=== PATIENT | female | born 1995 | race Two or more races ===

== ENCOUNTER → 2019-03-06 15:01 | Outpatient (CLI) | payer MEDICAID, SELFPAY ==
[2019-03-06 16:45] LABS: HCG,Quantitative 0 mIU/mL
== END ==
PROVIDERS: Visit Provider Nurse Practitioner Obstetrics & Gynecology
DX: Z32.00 Encounter for pregnancy test, result unknown (principal)
CPT/HCPCS: 36415; 84702

== ENCOUNTER 2020-06-17 14:32 | Emergency (ER) | payer OTHER, SELFPAY ==
[2020-06-17 14:45] VITALS: BP 149/85; PULSE 77; RESP 20; TEMP 36.7; O2SAT 98; BMI 28.0
--- NOTE | 2020-06-17 15:12 | HMH.EDUTC ---
[facility] [place] Disposition Clinical Impression: Otitis media Qualifiers: Otitis media type: unspecified Laterality: bilateral Qualified Code(s): H66.93 - Otitis media, unspecified, bilateral Sinusitis Qualifiers: Sinusitis location: unspecified location Chronicity: unspecified Qualified Code(s): J32.9 - Chronic sinusitis, unspecified Disposition: Home, Self-Care Condition on Discharge: Good Instructions: Middle Ear Infections (Alternative Therapy), Middle Ear Infection, Amoxicillin and Clavulanic Acid Additional Instructions: *Monitor Temp, Over the counter Motrin or Tylenol as directed/as needed Tylenol every 4 hours and Motrin every 6 hours (as long as your family doctor has told you that you can take it) for fever or pain. and straight to ER if unable to lower temp less than 101.0 after medication given *Warm salt water gargles may help to soothe the throat *Throat Lozenges *Warm fluids like tea with honey may help to soothe the throat *Sleep elevated *Humidifier/Vaporizer *Flonase 2 sprays in each nostril daily but be aware that it may take 2-3 days before you notice improvement Your throat swab was sent for culture. Those results are typically sent to your primary care. Be sure to follow up in 2-3 days with your family doctor/primary care physician if no improvement so they can review those result and treat if necessary. If you don?t have a primary care doctor, I recommend you get one but in the mean time, you will have to return to a walk in clinic Follow up IMMEDIATELY for new or worsening symptoms or no Noticeable improvement over the next 48-72 hours. 911 for difficulty breathing or swallowing Prescriptions: Amoxicillin/Potassium Clav [Augmentin 875-125 Tablet] 1 tab PO Q12H 10 Days #20 tab Transmission Status: Pending to [facility] # Fluticasone Propionate [Flonase 50mcg nasal spray 16gm] 1 - 2 spr NS DAILY #1 bottle Transmission Status: Pending to [facility] # Referrals: Oren Jones MD [Primary Care Provider] - As needed Time of Disposition: 15:17 Medical Decision Making - Rock Inquiry Pt receiving controlled substance: No Rock was queried for this patient: No Vital Signs: 06/17/20 14:45 Temperature 98.0 F Temperature Source Oral Pulse Rate [Right Brachial] 77 Respiratory Rate 20 Blood Pressure [Right Arm] 149/85 H Blood Pressure Mean [Right Arm] 106 Blood Pressure Source [Right Arm] Automatic Cuff Blood Pressure Position [Right Arm] Sitting 02 Sat by Pulse Oximetry 98 Oxygen Delivery Method Room Air [facility] [place] HPI - General Stated complaint: stuffy nose,headache Time Seen by Provider: 06/17/20 15:12 Mode of Arrival: Ambulatory Source of Information: Patient Limitations: No Limitations Description of Symptoms (Recalled from Triage Doc. by RN): PATIENT STATES SHE FEELS LIKE HER BILATERAL EARS ARE CLOGGED, ITCHING AND POSSIBLY DRAINING, DIZZINESS, AND SINUS PRESSURE X APPROX 1.5 WEEKS HEENT Symptoms (Recalled from RN notes): Yes Resp Symptoms (Recalled from RN notes): No Skin Symptoms (Recalled from RN notes): No MS Symptoms (Recalled from RN notes): No Functional Status (Recalled from RN notes): WNL - History of Present Illness Provider Complaint: Patient states that she has been having sinus pain and pressure along with bilateral ear pain and fullness for almost a week that has continued to get worse States that when it gets like this she has spells of feeling dizzy States that she has been treated several times in the past for this and last time she was given antibiotics and it didnt help but unsure what they was - Related Data Previous Rx's Medication Instructions Recorded Amoxicillin/Potassium Clav 1 tab PO Q12H 10 Days #20 tab 06/17/20 [Augmentin 875-125 Tablet] Fluticasone Propionate [Flonase 1 - 2 spr NS DAILY #1 bottle 06/17/20 50mcg nasal spray 16gm] Allergies Allergy/AdvReac Type Severity Reaction Status Date / Time No Known Allergies A
[2020-06-17 15:20] VITALS: BP 149/85; PULSE 77; RESP 20; TEMP 36.7; O2SAT 98
== END 2020-06-17 15:23 | disposition home or self-care (01) ==
PROVIDERS: Emergency Provider Nurse Practitioner; PCP Internal Medicine Adolescent Medicine
DX: H66.93 Otitis media, unspecified, bilateral (principal); J32.9 Chronic sinusitis, unspecified; F17.210 Nicotine dependence, cigarettes, uncomplicated
CPT/HCPCS: 99201

== ENCOUNTER 2020-07-07 15:15 | Emergency (ER) | payer OTHER, SELFPAY ==
[2020-07-07 16:16] VITALS: BP 115/66; PULSE 87; RESP 20; TEMP 36.7; O2SAT 99; BMI 23.8
--- NOTE | 2020-07-07 16:34 | XR_ITS ---
PROCEDURE: XR ANKLE RT MIN 3V CLINICAL INDICATION: twisted it Pain COMPARISON: No exams were available for comparison FINDINGS: No fracture or dislocation. No lytic or blastic change. There is normal mineralization. The joint spaces are well-preserved. No significant degenerative/arthritic changes. No erosive changes evident. Other findings:None. IMPRESSION: No acute findings. Dictated by: Francisco Meek MD 07/07/2020 17:05 Francisco Meek MD in [place] 07/07/2020 17:05
--- NOTE | 2020-07-07 16:49 | HMH.EDUTC ---
[facility] [place] Disposition Clinical Impression: UTI (urinary tract infection) Qualifiers: Urinary tract infection type: site unspecified Hematuria presence: with hematuria Qualified Code(s): N39.0 - Urinary tract infection, site not specified; R31.9 - Hematuria, unspecified Disposition: Home, Self-Care Condition on Discharge: Good Instructions: Urinary Tract Infection, DI for Urinary Tract Infection (UTI) Prescriptions: Ondansetron [Zofran 4mg ODT] 4 mg PO Q8HP PRN #9 tab.rapdis PRN Reason: Nausea Transmission Status: Pending to [facility] # Sulfamethoxazole/Trimethoprim [Bactrim DS tablet] 1 each PO BID 7 Days #14 tab Transmission Status: Pending to [facility] # Phenazopyridine HCl [Pyridium 200mg Tablet] 200 pow PO TID #6 tab Transmission Status: Pending to [facility] # Referrals: Oren Jones MD [Primary Care Provider] - Forms: Work/School Release Time of Disposition: 16:52 Medical Decision Making - Medical Records Medical records reviewed: No: I reviewed the patient's medical records. - Rock Inquiry Pt receiving controlled substance: No Vital Signs: 07/07/20 16:16 Temperature 98.1 F Temperature Source Oral Pulse Rate [Radial] 87 Respiratory Rate 20 Blood Pressure [Right Arm] 115/66 Blood Pressure Mean [Right Arm] 82 Blood Pressure Source [Right Arm] Automatic Cuff Blood Pressure Position [Right Arm] Sitting 02 Sat by Pulse Oximetry 99 Oxygen Delivery Method Room Air - Lab Data Lab results reviewed: Yes: I reviewed the patient's lab results. Orders (Tests/Meds): ORDERS Category Date Time Status Ankle XR -Right minimum 3 Views [XR ankle RT min 3V] Exams 07/07/20 16:34 Taken Stat [facility] [place] HPI - General Stated complaint: AO 1014@1130 injured R ankle Time Seen by Provider: 07/07/20 16:49 Mode of Arrival: Ambulatory Source of Information: Patient Limitations: No Limitations Description of Symptoms (Recalled from Triage Doc. by RN): twisted right ankle HEENT Symptoms (Recalled from RN notes): No Resp Symptoms (Recalled from RN notes): No Skin Symptoms (Recalled from RN notes): No MS Symptoms (Recalled from RN notes): Yes Functional Status (Recalled from RN notes): wnl - History of Present Illness Provider Complaint: She states that since this morning she has been having burning while she urinates and low back pain. She was at work when her symptoms began. She was sent to a [facility] in [place] and had a rapid covid test (it was negative), but at the time she did not realize that she was probably getting a uti. - Related Data Previous Rx's Medication Instructions Recorded Amoxicillin/Potassium Clav 1 tab PO Q12H 10 Days #20 tab 06/17/20 [Augmentin 875-125 Tablet] Fluticasone Propionate [Flonase 1 - 2 spr NS DAILY #1 bottle 06/17/20 50mcg nasal spray 16gm] Ondansetron [Zofran 4mg ODT] 4 mg PO Q8HP PRN #9 tab.rapdis 07/07/20 Phenazopyridine HCl [Pyridium 200 pow PO TID #6 tab 07/07/20 200mg Tablet] Sulfamethoxazole/Trimethoprim 1 each PO BID 7 Days #14 tab 07/07/20 [Bactrim DS tablet] Allergies Allergy/AdvReac Type Severity Reaction Status Date / Time No Known Allergies Allergy Verified 03/24/20 13:32 - Worker's Comp Is this a Worker's Comp case?: No [facility] History - Hepatitis A Screen Drug use history?: No High risk sexual behaviors?: No History of sexually transmitted infection?: No Currently employed?: No Childcare worker?: No Do you have indoor plumbing?: Yes Do you have electricity?: Yes Attestation statement:: This patient has been screened for Hepatitis A risk factors. I have reviewed the patient's past medical history: Yes Medical History: Denies:: Anxiety, Asthma, Depression, Diabetes Mellitus Type 1, Hyperlipidemia, Hypertension Laterality Cases: Bilateral: Tonsillectomy Amputation: No Fractures: Yes (TOE) Comment: cyst removed from right side of neck - Social History
--- NOTE | 2020-07-07 17:05 | HMH.EDUTC ---
[facility] [place] Disposition Clinical Impression: Right ankle sprain Qualifiers: Encounter type: initial encounter Involved ligament of ankle: unspecified ligament Qualified Code(s): S93.401A - Sprain of unspecified ligament of right ankle, initial encounter Disposition: Home, Self-Care Condition on Discharge: Good Instructions: Ankle Sprain, DI for Ankle Sprain Additional Instructions: Rest the extremity, apply ice for 15 minutes as tolerated three or four times per day, Elevate the extremity as tolerated while you are resting. Take ibuprofen for pain. I sent in a prescription to your pharmacy. Follow up with Dr. Low (orthopedics). I put in a referral but you need to call his office and schedule an appointment if your injury is not getting better. Follow up with your regular doctor. GO TO THE ER FOR ANY WORSENING SYMPTOMS Prescriptions: Ibuprofen [Ibuprofen 600mg Tablet] 600 mg PO Q6HP PRN #30 tab PRN Reason: Mild Pain Transmission Status: Received by [facility] #[id number] Referrals: Oren Jones MD [Primary Care Provider] - Forms: Work/School Release Time of Disposition: 17:46 Medical Decision Making - Medical Records Medical records reviewed: No: I reviewed the patient's medical records. - Rock Inquiry Pt receiving controlled substance: No Vital Signs: 07/07/20 16:16 07/07/20 18:34 Temperature 98.1 F 98.1 F Temperature Source Oral Oral Pulse Rate 87 Pulse Rate [Radial] 87 Respiratory Rate 20 20 Blood Pressure 115/66 Blood Pressure [Right Arm] 115/66 Blood Pressure Mean [Right Arm] 82 Blood Pressure Source Automatic Cuff Blood Pressure Source [Right Arm] Automatic Cuff Blood Pressure Position Sitting Blood Pressure Position [Right Arm] Sitting 02 Sat by Pulse Oximetry 99 Oxygen Delivery Method Room Air Room Air - Radiology Data #1 Image(s): Ankle Image Reviewed: Yes I reviewed the patient's radiology image, Yes I have reviewed radiologist's interpretation Preliminary Findings: No Fracture Seen PROCEDURE: XR ANKLE RT MIN 3V CLINICAL INDICATION: twisted it Pain COMPARISON: No exams were available for comparison FINDINGS: No fracture or dislocation. No lytic or blastic change. There is normal mineralization. The joint spaces are well-preserved. No significant degenerative/arthritic changes. No erosive changes evident. Other findings:None. IMPRESSION: No acute findings. Dictated by: Francisco Meek MD 07/07/2020 17:05 in [place] [facility] [place] HPI - General Stated complaint: AO 1014@1130 injured R ankle Time Seen by Provider: 07/07/20 16:49 Mode of Arrival: Ambulatory Source of Information: Patient Limitations: No Limitations Description of Symptoms (Recalled from Triage Doc. by RN): twisted right ankle HEENT Symptoms (Recalled from RN notes): No Resp Symptoms (Recalled from RN notes): No Skin Symptoms (Recalled from RN notes): No MS Symptoms (Recalled from RN notes): Yes Functional Status (Recalled from RN notes): wnl - History of Present Illness Provider Complaint: She states that she stepped on the leg of a chair or table and it caused her to twist her right ankle. This happened earlier today. Since then she has had right ankle pain and right foot pain. The pain is worse when she walks or bears weight on that extremity. - Related Data Previous Rx's Medication Instructions Recorded Amoxicillin/Potassium Clav 1 tab PO Q12H 10 Days #20 tab 06/17/20 [Augmentin 875-125 Tablet] Fluticasone Propionate [Flonase 1 - 2 spr NS DAILY #1 bottle 06/17/20 50mcg nasal spray 16gm] Ibuprofen [Ibuprofen 600mg 600 mg PO Q6HP PRN #30 tab 07/07/20 Tablet] Allergies Allergy/AdvReac Type Severity Reaction Status Date / Time No Known Allergies Allergy Verified 03/24/20 13:32 - Worker's Comp Is this a Worker's Comp case?: No [facility] History - Hepatitis A Screen Drug use history?: No High risk sexual behaviors?: No History o
[2020-07-07 18:34] VITALS: BP 115/66; PULSE 87; RESP 20; TEMP 36.7; O2SAT 99
== END 2020-07-07 18:35 | disposition home or self-care (01) ==
PROVIDERS: Emergency Provider Nurse Practitioner Family; PCP Internal Medicine Adolescent Medicine
DX: S93.401A Sprain of unspecified ligament of right ankle, initial encounter (principal); X50.1XXA Overexertion from prolonged static or awkward postures, initial encounter; Y92.019 Unspecified place in single-family (private) house as the place of occurrence of the external cause; N30.01 Acute cystitis with hematuria
CPT/HCPCS: 73610; 99201

== ENCOUNTER → 2020-07-21 16:31 | Outpatient (CLI) | payer OTHER, SELFPAY | PROVIDERS: PCP Internal Medicine Adolescent Medicine; Visit Provider Nurse Practitioner Family | DX: Z02.1 Encounter for pre-employment examination (principal); Z11.1 Encounter for screening for respiratory tuberculosis ==

== ENCOUNTER → 2020-10-29 15:41 | Outpatient (CLI) | payer OTHER, SELFPAY ==
[2020-10-29 17:41] LABS: HCG,Quantitative 27 mIU/ml (0-5.42)
== END ==
PROVIDERS: Visit Provider Nurse Practitioner Obstetrics & Gynecology
DX: Z34.90 Encounter for supervision of normal pregnancy, unspecified, unspecified trimester (principal)
CPT/HCPCS: 36415; 84702

== ENCOUNTER → 2020-11-26 07:59 | Outpatient (CLI) | payer OTHER, SELFPAY ==
[2020-11-26 09:53] LABS: HCG,Quantitative 90903 mIU/ml (0-5.42)
== END ==
PROVIDERS: Visit Provider Nurse Practitioner Obstetrics & Gynecology
DX: Z32.00 Encounter for pregnancy test, result unknown (principal)
CPT/HCPCS: 36415; 84702

== ENCOUNTER → 2020-12-03 10:48 | Outpatient (CLI) | payer OTHER, SELFPAY ==
--- NOTE | 2020-12-03 10:48 | US_ITS ---
PROCEDURE: US OB <= 14 WEEKS FETUS CLINICAL INDICATION: US OB before 14 weeks for DATES COMPARISON: No exams were available for comparison FINDINGS: An intrauterine gestational sac is present with a pole with a crown-rump length of 1.88cm correlating to gestational age of 8weeks 3days. heart tones are present with an FHR of 174bpm. Yolk sac is noted. 2 cm right corpus luteum cyst noted IMPRESSION: Live IUP at 8 weeks 3 days. Estimated due date by Ultrasound is 07/12/2021 Dictated by: Francisco Meek MD 12/03/2020 16:55 Francisco Meek MD in [place] 12/03/2020 16:55
== END ==
PROVIDERS: PCP Internal Medicine Adolescent Medicine; Visit Provider Nurse Practitioner Obstetrics & Gynecology
DX: O26.841 Uterine size-date discrepancy, first trimester (principal); Z3A.09 9 weeks gestation of pregnancy
CPT/HCPCS: 76801

== ENCOUNTER 2020-12-31 15:27 | Emergency (ER) | payer OTHER, SELFPAY ==
[2020-12-31 15:28] VITALS: BP 129/74; PULSE 104; RESP 18; TEMP 36.4; O2SAT 97; BMI 28.5
--- NOTE | 2020-12-31 15:46 | ECG_ITS ---
APPROVED REPORT Exam: Resting ECG HR:91 bpm ECG Measurements Heart Rate 91 AXES IL 116 P 27 QRSd 84 QRS 68 QT 374 T 6 QTc 460 Conclusion Sinus rhythm with fusion complexes ST abnormality - non specific Abnormal ECG Electronically signed by : Oren Jones, 01/01/2021 08:40:47
--- NOTE | 2020-12-31 15:58 | HMH.EDDIZZ ---
ED Disposition Clinical Impression: PVC (premature ventricular contraction), Palpitations, Dehydration during Disposition: Home, Self-Care Condition on Discharge: Good Instructions: Dizziness, Nonvertigo, DI for Palpitations Additional Instructions: Return to the ED with any new or worsening symptoms including persistent palpitations that do not resolve spontaneously, chest pain, shortness of breath, fever. Referrals: Oren Jones MD [Primary Care Provider] - Time of Disposition: 19:14 - Critical Care Critical Care Time: No Attestation: On 12/31/20, the high probability of a clinically significant, sudden or life threatening deterioration of the following system(s) required my full and direct attention, intervention and personal management. The time I documented below is in addition to time spent performing reported procedures but includes the following listed in this critical care notation. Medical Decision Making - Medical Records Medical records reviewed: Yes: I reviewed the patient's medical records. - Rock Inquiry Pt receiving controlled substance: No Vital Signs: 12/31/20 15:28 Temperature 97.6 F Temperature Source Oral Pulse Rate [Left Radial] 104 H Respiratory Rate 18 Blood Pressure [Right Arm] 129/74 Blood Pressure Mean [Right Arm] 92 Blood Pressure Source [Right Arm] Automatic Cuff Blood Pressure Position [Right Arm] Sitting 02 Sat by Pulse Oximetry 97 Oxygen Delivery Method Room Air - Lab Data Lab Results 12/31/20 17:24: Urine Color Yellow, Urine Appearance Cloudy, Urine pH 6.0, Ur Specific [place] >= 1.030, Urine Protein Negative, Urine Glucose (UA) Negative, Urine Ketones Negative, Urine Blood Negative, Urine Nitrate Negative, Urine Bilirubin Negative, Urine Urobilinogen 0.2, Ur Leukocyte Esterase 1+ A, Urine RBC None, Urine WBC 5-10, Ur Squamous Epith Cells 10-20, Amorphous Sediment 2+, Urine Bacteria None 12/31/20 17:24: WBC 11.6 H, RBC 4.27, Hgb 13.0, Hct 38.0, MCV 88.9, MCH 30.4, MCHC 34.2, RDW 13.1, Plt Count 279, MPV 8.0, Neut % (Auto) 74.3, Lymph % (Auto) 17.6, Coffee % (Auto) 6.7, Eos % (Auto) 1.1, Baso % (Auto) 0.3, Neut # (Auto) 8.6 H, Lymph # (Auto) 2.1, Coffee # (Auto) 0.8, Eos # (Auto) 0.1, Baso # (Auto) 0.0 12/31/20 17:24: Sodium 137, Potassium 3.8, Chloride 107, Carbon Dioxide 23, Anion Gap 10.8, BUN 8, Creatinine 0.50 L, Estimated Creat Clear 236, Estimated GFR 149, Est GFR ( Amer) 180, Glucose 78, Calcium 9.4, Magnesium 1.9, Total Bilirubin 0.5, AST 31, ALT 30, Alkaline Phosphatase 61, Total Protein 7.1, Albumin 4.1, Globulin 3.0, Albumin/Globulin Ratio 1.4 Result diagrams: 12/31/20 17:24 12/31/20 17:24 Orders (Tests/Meds): ED MEDICATIONS Discontinued Medications Generic Name Dose Route Start Last Admin Trade Name Freq PRN Reason Stop Dose Admin Lactated Ringer's 1,000 mls @ 999 mls/hr 12/31/20 16:30 12/31/20 17:31 Lactated Ringer's 1000 Ml Bag IV 12/31/20 17:30 999 mls/hr .Q1H1M KENDRICK Administration ORDERS Category Date Time Status Urine Culture Stat Micro 12/31/20 17:24 Received EKG Request [ECG Request by /Abdi] Stat Y 12/31/20 16:53 Stop Req - ECG Data Tracing #2 I reviewed this ECG and interpreted as documented below: Normal sinus rhythm with evidence of ectopy in the form of PVCs. No evidence of ST segment changes or acute T wave inversions concerning for ischemia. Medical Decision Narrative: 25-year-old female who is 3 months who presents with palpitations and dizziness upon standing. Patient is overall well-appearing and nontoxic on initial examination is hemodynamically stable vital signs but evidence of ectopy on exam and EKG. Suspect this is related physiologic changes and complicated by dehydration. CMP, CBC and UA are ordered and she is given a 1 L IV fluid bolus. Electrolytes are all within normal limits and demonstrate no acute actionable results. No evidence of urinalysis. Fo
[2020-12-31 17:31] VITALS: BP 133/85; PULSE 87; O2SAT 97
[2020-12-31 17:31] LABS: Microscopic, Urine URINE MICROSCOPIC (MICROSCOPIC)
[2020-12-31 17:32] LABS: Appearance,Urine CLOUDY (Clear); Basophils % 0.3 % (0.1-2.0); Bilirubin,Urine Negative (Negative); Blood, Urine Negative (Negative); Color,Urine YELLOW (Yellow); Eosinophils # 0.1 K/mm3 (0.0-0.4); Eosinophils % 1.1 % (0.1-12.0); Glucose,Urine (UA) Negative (Negative); Ketones,Urine Negative (Negative); Leukocyte Esterase,Urine 1+ (Negative); Lymphocytes # 2.1 K/mm3 (0.7-4.5); Lymphocytes % 17.6 % (10-50); Mean Corpuscular HGB Conc 34.2 g/dL (31.8-35.4); Mean Corpuscular Hemoglobin 30.4 pg (27.0-31.2); Mean Corpuscular Volume 88.9 fl (81-99); Monocytes # 0.8 K/mm3 (0.1-1.0); Monocytes % 6.7 % (1.7-9.3); Neutrophils # 8.6 K/mm3 (1.8-7.8); Neutrophils % 74.3 % (37.0-80.0); Nitrate,Urine Negative (Negative); Platelet Count 279 K/mm3 (142-424); Protein,Urine Negative (Negative); Red Blood Count 4.27 M/mm3 (4.20-5.40); Red Cell Distribution Width 13.1 % (11.5-17.5); Specific Gravity, Urine >= 1.030 (1.005-1.030); Urobilinogen,Urine 0.2 EU/dl (0.2); White Blood Count 11.6 K/mm3 (4.8-10.8)
[2020-12-31 17:39] LABS: Amorphous Sediment,Urine 2+ /lpf
[2020-12-31 17:40] LABS: Chloride 107 mmol/L (98-107); Potassium 3.8 mmoL/L (3.5-5.1); Sodium 137 mmol/L (136-145)
[2020-12-31 17:42] LABS: Alanine Aminotransferase 30 U/L (12-78); Aspartate Amino Transferase 31 U/L (14-36); Blood Urea Nitrogen 8 mg/dl (7-17); Creatinine Clearance Estimated 236 mL/min (50-200); Estimated Glomerular Filt Rate 149 ml/min (>60); GFR (African American) 180 ML/MIN (>60)
[2020-12-31 17:43] LABS: Albumin Level 4.1 g/dl (3.5-5.0); Albumin/Globulin Ratio 1.4 (1.1-1.8); Alkaline Phosphatase 61 U/L (38-126); Anion Gap 10.8 mEq/L (5-15); Bilirubin,Total 0.5 mg/dl (0.2-1.3); Calcium 9.4 mg/dl (8.4-10.2); Carbon Dioxide 23 mmol/L (22.0-30.0); Glucose 78 mg/dl (74-100); Magnesium 1.9 mg/dl (1.6-2.3); Total Protein,Serum 7.1 g/dl (6.3-8.2)
[2020-12-31 18:00] VITALS: BP 144/94; PULSE 82; O2SAT 98
[2020-12-31 18:30] VITALS: BP 130/74; PULSE 76; O2SAT 99
[2020-12-31 19:00] VITALS: BP 154/92; PULSE 69; O2SAT 97
[2020-12-31 19:25] VITALS: BP 154/92; PULSE 69; RESP 18; TEMP 36.4; O2SAT 97
== END 2020-12-31 19:25 | disposition home or self-care (01) ==
PROVIDERS: Emergency Provider Student in an Organized Health Care Education/Training Program; PCP Internal Medicine Adolescent Medicine
DX: O26.899 Other specified pregnancy related conditions, unspecified trimester (principal); E86.0 Dehydration; I49.3 Ventricular premature depolarization; Z3A.12 12 weeks gestation of pregnancy; F17.290 Nicotine dependence, other tobacco product, uncomplicated
CPT/HCPCS: 80053; 81001; 83735; 85025; 87086; 93005; 96365; 99282

== ENCOUNTER → 2021-01-03 13:23 | Outpatient (CLI) | payer OTHER, SELFPAY ==
[2021-01-03 13:47] LABS: Basophils % 0.3 % (0.1-2.0); Eosinophils # 0.2 K/mm3 (0.0-0.4); Eosinophils % 1.4 % (0.1-12.0); Hemoglobin 12.7 g/dL (12.2-16.2); Lymphocytes % 17.6 % (10-50); Mean Corpuscular HGB Conc 33.5 g/dL (31.8-35.4); Mean Corpuscular Hemoglobin 30.4 pg (27.0-31.2); Mean Corpuscular Volume 90.8 fl (81-99); Mean Platelet Volume 8.2 fl (7.4-10.4); Monocytes # 0.7 K/mm3 (0.1-1.0); Monocytes % 6.3 % (1.7-9.3); Neutrophils # 8.3 K/mm3 (1.8-7.8); Neutrophils % 74.4 % (37.0-80.0); Platelet Count 297 K/mm3 (142-424); Red Blood Count 4.19 M/mm3 (4.20-5.40); White Blood Count 11.2 K/mm3 (4.8-10.8)
[2021-01-03 14:49] LABS: Alanine Aminotransferase 27 U/L (12-78); Albumin Level 4.2 g/dl (3.5-5.0); Albumin/Globulin Ratio 1.6 (1.1-1.8); Alkaline Phosphatase 70 U/L (38-126); Anion Gap 13.3 mEq/L (5-15); Aspartate Amino Transferase 31 U/L (14-36); Bilirubin,Total 0.4 mg/dl (0.2-1.3); Blood Urea Nitrogen 8 mg/dl (7-17); Calcium 9.9 mg/dl (8.4-10.2); Carbon Dioxide 22 mmol/L (22.0-30.0); Chloride 107 mmol/L (98-107); Estimated Glomerular Filt Rate 121 ml/min (>60); GFR (African American) 146 ML/MIN (>60); Globulin 2.7 g/dL (1.3-3.2); Glucose 77 mg/dl (74-100); Potassium 4.3 mmoL/L (3.5-5.1); Sodium 138 mmol/L (136-145); Total Protein,Serum 6.9 g/dl (6.3-8.2)
[2021-01-03 15:22] LABS: Thyroid Stimulating Hormone 0.77 uIU/mL (0.465-4.68)
[2021-01-03 15:39] LABS: Vitamin B12 481 pg/mL (239-931)
[2021-01-05 22:25] LABS: Hepatitis B Surface Antigen Negative (Negative); Hepatitis C Antibody <0.1 s/co ratio (0.0-0.9); Rapid Plasma Reagin Ab Titer Non Reactive (NonRea<1:1)
[2021-01-05 22:26] LABS: HIV Screen 4th Generation wRfx Non Reactive (Non Reactive); Rubella Antibodies, IgG <0.90 index (Immune >0.99)
== END ==
PROVIDERS: Nurse Practitioner Obstetrics & Gynecology; Visit Provider Internal Medicine Adolescent Medicine
DX: Z34.90 Encounter for supervision of normal pregnancy, unspecified, unspecified trimester (principal); Z3A.01 Less than 8 weeks gestation of pregnancy
CPT/HCPCS: 36415; 80053; 82607; 84443; 85025; 86592; 86703; 86762; 86850; 87340; 87380; G0432

== ENCOUNTER → 2021-01-27 12:42 | Outpatient (CLI) | payer OTHER, SELFPAY ==
--- NOTE | 2021-01-27 12:49 | CA_ITS ---
APPROVED REPORT EXAM: Comprehensive 2D, Doppler, and color-flow Echocardiogram Photograph Finisher: Bea Small, RCS, RVS Ht: 5 ft 8 in Wt: 188lbs BSA: 1.99 HR: 68 bpm BP: 118/68 mmHg Rhythm: irregulr Indications: Palpitatioins, -16wk, congenital hx-AI, murmur 2D Dimensions IVSd 0.67 cm LVEF (Visual) 59.10 % PWd 0.72 cm LA Volume 34.10 mL LVDd 4.16 cm LA Volume Index 17.10 mL/m2 (M/F) 16-34 LVDs 2.87 cm LVOT 1.93 cm (M/F) 1.5-2.5 M-Mode Dimensions RVDd 2.79 cm (0.9-2.6) LA Diam 2.23 cm (1.9-4.0) LVDd 3.89 cm (3.5-5.7) Ao Diam 3.00 cm (2.0-3.7) LVDs 2.74 cm (3.5-5.7) IVSd 0.67 cm (0.6-1.1) PWd 1.02 cm (0.6-1.1) EF (Teich) 58.80% EPSs 0.40 cm FS 30.60% EDV (Teich) 67.90 mL TAPSE 1.30 (<1.7) ESV (Teich) 28.00 mL LV Diastology E Decel Time 253.00 (160-240 msec) E/A Ratio 3.40 MED E' 13.10 (< 7 cm/sec) MED A' 4.40 cm/s E'/MED E' Ratio 5.66 (>14) LAT E' 16.10 (<10 cm/sec) LAT A' 4.20 cm/s E/LAT E' Ratio 4.61 (>14) Aortic Valve LVOT Max 76.00 (70-110 cm/s) LVOT VTI 12.37 cm AoV Peak Wilder. 113.00 (50-130 cm/s) AI PHT 511.00 ms AO Peak GR. 5.10 mmHg AO Mean GR. 3.00 (<5 mmHg) AO VTI 21.03 (18-25 cm) ABEL (VTI) 1.72 (2.5-4.5 cm2) Mitral Valve MV E Max Wilder. 74.00 (40-130 cm/s) MV A Velocity 22.00 (40-130 cm/s) E/A Ratio 3.40 MV Decel. Time 253.00 (160-240 ms) MV PHT 74.00 ms Pulmonary Valve PV Peak Velocity 81.00 (50-150 cm/s) UT End VMAX 132.00 cm/s Tricuspid Valve TR P. Velocity 186.00 cm/s RAP Estimate 10.00 mmHg RVSP 23.90 mmHg Left Ventricle Left atrium is normal size, left ventricle is normal size, there is no concentric left ventricular hypertrophy, visually estimated ejection fraction 55% with no regional wall motion abnormality. Diastolic parameters are within normal range Right Ventricle Right atrium and right ventricle are normal size and contractility. Aortic Valve Aortic valve morphology is not well-visualized, leaflets are minimally thickened and calcified, is likely a bicuspid aortic valve, there is no aortic stenosis, there is mild aortic insufficiency. Mitral Valve Mitral valve grossly normal, there is trace mitral regurgitation. Tricuspid Valve Tricuspid grossly normal, there is no significant tricuspid regurgitation. Pulmonic Valve Pulmonic valve is poorly visualized. Great Vessels Aortic root is normal size. Pericardium No significant pericardial effusion noted. Conclusion 1. Normal left ventricular size, preserved left ventricular systolic function, visually estimated ejection fraction 55% with no regional wall motion abnormality, diastolic parameters are within normal range 2. Likely bicuspid aortic valve with mild aortic insufficiency, aortic root is normal size. 3. No significant pericardial effusion noted. Electronically signed by : Vinay Bryant, 01/27/2021 17:10:08
== END ==
PROVIDERS: PCP Internal Medicine Adolescent Medicine; Visit Provider Internal Medicine Adolescent Medicine
DX: Q23.1 Congenital insufficiency of aortic valve (principal)
CPT/HCPCS: 93306

== ENCOUNTER → 2021-02-23 13:00 | Outpatient (CLI) | payer OTHER, SELFPAY ==
--- NOTE | 2021-02-23 13:04 | US_ITS ---
PROCEDURE: US OB >= 14 WEEKS FETUS CLINICAL INDICATION: 20 week gestation of COMPARISON: No exams were available for comparison FINDINGS: There is a single live fetus which is in breech presentation. heart and body motion is noted. Cervix is closed and measures 3 cm. The placenta is anterior and grade 1. No previa or abruption. Complete survey performed and was unremarkable on the submitted images as in PACS. No discrete anomalies identified on survey imaging by technologist. Active fetus. Three-vessel cord with satisfactory umbilical cord insertion. 4- chamber heart noted. Survey of brain & ventricles Unremarkable. Face and neck survey unremarkable. Diaphragm and chest views unremarkable. Abdomen: Both kidneys noted and unremarkable. Stomach noted and satisfactory. Spine: Survey of the spine satisfactory with no anomalies identified nor imaged. Both arms and legs noted. Amniotic Fluid: Adequate. Maternal adnexa: No significant findings. Measurements: Average ultrasound age 20weeks. Gestational Age 20weeks Estimated due date by ultrasound age 1007/13/2021. Estimated weight 324g BPD = 20weeks 1day OFD = 20weeks 1day HC = 19weeks 2days AC = 20weeks FL = 20weeks 1day Growth Percentile= 35% Heart Rate = 150bpm Cerebellum = 20weeks 1day Humerus = 20weeks 2days HC/AC is 1.13 CI is 0.79 FL/BPD is 0.7 FL/AC is 0.22 IMPRESSION: Live IUP at 20 weeks in breech presentation. No obvious anomalies. Please see above for detail. Dictated by: Francisco Meek MD 02/23/2021 17:27 Francisco Meek MD in [place] 02/23/2021 17:27
== END ==
PROVIDERS: PCP Internal Medicine Adolescent Medicine; Visit Provider Nurse Practitioner Obstetrics & Gynecology
DX: Z34.90 Encounter for supervision of normal pregnancy, unspecified, unspecified trimester (principal); Z3A.20 20 weeks gestation of pregnancy
CPT/HCPCS: 76805

== ENCOUNTER → 2021-03-07 14:19 | Outpatient (CLI) | payer OTHER, SELFPAY ==
--- NOTE | 2021-03-07 14:19 | CA_ITS ---
APPROVED REPORT EXAM: Comprehensive 2D, Doppler, and color-flow Echocardiogram Clinical Instructor: Farnaz Lema RT(R) Ht: 5 ft 9 in Wt: 189lbs BSA: 2.02 BP: 118/68 mmHg Indications: murmur, palpitations, 20 weeks , r/o bicuspid AV, echo 01/27/21 suggest additional AV pictures and measurements 2D Dimensions LVOT 2.11 cm (M/F) 1.5-2.5 Aortic Valve LVOT Max 101.00 (70-110 cm/s) LVOT VTI 18.23 cm AoV Peak Wilder. 122.00 (50-130 cm/s) AO Peak GR. 5.90 mmHg AO Mean GR. 2.90 (<5 mmHg) AO VTI 20.43 (18-25 cm) ABEL (VTI) 3.12 (2.5-4.5 cm2) Left Ventricle Left atrium is normal size, left ventricle is normal size, there is no concentric left ventricular hypertrophy, visually estimated ejection fraction 55% with no regional wall motion abnormality. Diastolic parameters are within normal range. Right Ventricle Right atrium and right ventricle are normal size and contractility. Aortic Valve Aortic valve appears to be bicuspid without aortic stenosis, there is trace aortic insufficiency. Mitral Valve Mitral valve grossly normal, there is trace mitral regurgitation. Tricuspid Valve Tricuspid grossly normal, there is trace tricuspid regurgitation, tricuspid regurgitation jet velocity is inadequate for calculation of the right ventricular systolic pressure. Pulmonic Valve Pulmonic valve is poorly visualized. Great Vessels Aortic root is normal size. Pericardium No significant pericardial effusion noted. Conclusion 1. Normal left ventricular size, preserved left ventricular systolic function, visually estimated ejection fraction 55% with no regional wall motion abnormality, diastolic parameters are within normal range. 2. Bicuspid aortic valve with normal aortic root size, there is no aortic i stenosis,, there is trace aortic insufficiency. 3. Trace mitral and tricuspid regurgitation. 4. No significant pericardial effusion noted. Electronically signed by : Vinay Bryant, 03/07/2021 20:13:33
== END ==
PROVIDERS: PCP Internal Medicine Adolescent Medicine; Visit Provider Internal Medicine Cardiovascular Disease
DX: I49.3 Ventricular premature depolarization (principal); R00.2 Palpitations; R01.1 Cardiac murmur, unspecified; Z3A.16 16 weeks gestation of pregnancy
CPT/HCPCS: 93308

== ENCOUNTER → 2021-04-26 07:01 | Outpatient (CLI) | payer OTHER, SELFPAY ==
[2021-04-26 07:37] LABS: Glucose,Fasting 79 mg/dl (74-100)
[2021-04-26 09:06] LABS: Glucose 1 Hour 124 mg/dL (74-100)
== END ==
PROVIDERS: Visit Provider Nurse Practitioner Obstetrics & Gynecology
DX: Z34.90 Encounter for supervision of normal pregnancy, unspecified, unspecified trimester (principal)
CPT/HCPCS: 36415; 82951

== ENCOUNTER 2021-05-17 11:10 | Emergency (ER) | payer OTHER, SELFPAY ==
[2021-05-17 12:08] VITALS: BP 113/68; PULSE 122; RESP 20; TEMP 36.9; O2SAT 100; BMI 29.7
--- NOTE | 2021-05-17 12:21 | HMH.EDUTC ---
[facility] [place] Clinical Impression: Viral syndrome Acute bronchitis Qualifiers: Bronchitis organism: unspecified organism Qualified Code(s): J20.9 - Acute bronchitis, unspecified Pharyngitis Qualifiers: Pharyngitis/tonsillitis etiology: unspecified etiology Qualified Code(s): J02.9 - Acute pharyngitis, unspecified Disposition: Home, Self-Care Condition on Discharge: Good Instructions: DI for Acute Bronchitis, DI for Viral Syndrome Additional Instructions: Drink plenty of fluids. Take tylenol or ibuprofen for pain or fever. Take the medications as directed. Follow up with your regular doctor. GO TO THE ER FOR ANY WORSENING SYMPTOMS Quarantine until you know the results of your covid-19 test. If it is positive, the health department should call you and give you further instructions about your length of Quarantine and other things. Notify your school or workplace of your results and follow their instructions regarding return to work/school. Prescriptions: Azithromycin [Z-Karan 250mg Tab*] 250 mg PO UD DOSE PK #6 tab Transmission Status: Received by [facility] #[id number] Referrals: rOen Jones MD [Primary Care Provider] - Forms: Work/School Release Time of Disposition: 12:34 Medical Decision Making - Medical Records Medical records reviewed: No: I reviewed the patient's medical records. - Rock Inquiry Pt receiving controlled substance: No Vital Signs: 05/17/21 12:08 05/17/21 12:52 Temperature 98.4 F 98.2 F Temperature Source Oral Pulse Rate 112 H Pulse Rate [Left] 122 H Respiratory Rate 20 18 Blood Pressure 0/0 L Blood Pressure [Right Arm] 113/68 Blood Pressure Mean [Right Arm] 83 02 Sat by Pulse Oximetry 100 - Lab Data Lab results reviewed: Yes: I reviewed the patient's lab results. Lab Results 05/17/21 12:25: Strep Scn Rapid Clinic Negative Orders (Tests/Meds): ORDERS Category Date Time Status Full Resp Panel w/COVID ([facility]) Routine Lab 05/17/21 12:03 Received Strep Screen Confirmation Stat Micro 05/17/21 12:25 [facility] HPI - General Stated complaint: covid exposure, cough Time Seen by Provider: 05/17/21 12:22 Mode of Arrival: Ambulatory Source of Information: Patient Limitations: No Limitations Description of Symptoms (Recalled from Triage Doc. by RN): pt was exposed to covid about a week ago. pt presents with cough, congestion, bilateral anterior and posterior rib pain. HEENT Symptoms (Recalled from RN notes): Yes (congestion, nasal drainage and LIU) Resp Symptoms (Recalled from RN notes): Yes (cough and lung pain) Skin Symptoms (Recalled from RN notes): No MS Symptoms (Recalled from RN notes): No Functional Status (Recalled from RN notes): na - History of Present Illness Provider Complaint: She reports that she has had a cough, chest congestion, pleuritic type chest pain, and feeling bad for the past 2 days. She is around 30 weeks . - Related Data Home Medications Medication Instructions Recorded Confirmed PNV 153-FA 400 mcg-om3 35 mg-dha tab PO 11/29/20 05/10/21 25 mg-epa 5 mg-fish oil chew tablet labetalol 100 mg tablet 50 mg PO BID tab 03/10/21 05/10/21 Previous Rx's Medication Instructions Recorded famotidine 20 mg tablet 20 mg PO DAILY #30 tab 11/29/20 ferrous sulfate 325 mg (65 mg 325 mg PO DAILY #30 tab 04/04/21 iron) tablet Azithromycin [Z-Karan 250mg Tab*] 250 mg PO UD DOSE PK #6 tab 05/17/21 Allergies Allergy/AdvReac Type Severity Reaction Status Date / Time No Known Allergies Allergy Verified 05/10/21 08:35 - Worker's Comp Is this a Worker's Comp case?: No [facility] History - Hepatitis A Screen Drug use history?: No High risk sexual behaviors?: No History of sexually transmitted infection?: No Currently employed?: No Childcare worker?: No Do you have indoor plumbing?: Yes Do you have electricity?: Yes Attestation statement:: This patient has been screened for Hepatitis
[2021-05-17 12:49] LABS: UTC Strep Screen (Rapid) Negative (Negative)
[2021-05-17 12:52] VITALS: BP 0/0; PULSE 112; RESP 18; TEMP 36.8
[2021-05-17 14:18] LABS: Adenovirus,PCR Not Detected (NotDetected); Bordetella Pertussis Not Detected (NotDetected); Chlamydophila Pneumoniae, PCR Not Detected (NotDetected); Coronavirus 229E Not Detected (NotDetected); Coronavirus NL63 Not Detected (NotDetected); Coronavirus OC43 Not Detected (NotDetected); Coronovirus HKU1,PCR Not Detected (NotDetected); Human Metapneumovirus Not Detected (NotDetected); Influenza A, PCR Not Detected (NotDetected); Influenza AH1, 2009 Not Detected (NotDetected); Influenza AH1, PCR Not Detected (NotDetected); Influenza AH3,PCR Not Detected (NotDetected); Influenza B, PCR Not Detected (NotDetected); Mycoplasma Pneumoniae, PCR Not Detected (NotDetected); Parainfluenza 1, PCR Not Detected (NotDetected); Parainfluenza 2, PCR Not Detected (NotDetected); Parainfluenza 3, PCR Not Detected (NotDetected); Parainfluenza 4, PCR Not Detected (NotDetected); Respiratory Syncytial Virus Not Detected (NotDetected); Rhinovirus/Enterovirus Not Detected (NotDetected)
[2021-05-19 06:52] LABS: Coronavirus 19, PCR Detected (NotDetected)
--- NOTE | 2021-05-19 09:25 | PC.NURSE ---
INFORMED PATIENT SHE WAS COVID POSITIVE
== END 2021-05-17 12:58 | disposition home or self-care (01) ==
PROVIDERS: Emergency Provider Nurse Practitioner Family; PCP Internal Medicine Adolescent Medicine
DX: O99.512 Diseases of the respiratory system complicating pregnancy, second trimester (principal); U07.1 COVID-19; J20.8 Acute bronchitis due to other specified organisms; Z3A.30 30 weeks gestation of pregnancy
CPT/HCPCS: 87581; 87633; 87798; 87880; 99202; G0463

== ENCOUNTER → 2021-06-08 13:22 | Outpatient (CLI) | payer OTHER, SELFPAY ==
--- NOTE | 2021-06-08 13:25 | US_ITS ---
PROCEDURE: US OB BIOPHYSICAL PROFILE CLINICAL INDICATION: Measuring smaller than dates TECHNIQUE: FINDINGS: The following parameters are obtained: Average ultrasound age is Average 33weeks 5days Estimated due date by ultrasound is 07/22/2021. Estimated weight is 2,110g. This is 6 percentile indicating intrauterine growth restriction. BPD: 33weeks 3days OFD: 33weeks 3days HC: 33 weeks 4 days AC: 32 weeks 1 day FL: 34 weeks 2 days heart rate: 149bpm bpm. HC/AC: 1.08 Cephalic index: 0.81 FL/BPD: 0.78 FL/AC: 0.24 Amniotic fluid index: 14.36cm Qualitative AFV: 2 breathing movements: 2 Gross body movements: 2 Tone: 2 Biophysical profile score: 8 The cervix is closed at 2 cm. There is cephalic presentation of the fetus. The placenta is anterior and grade 2 IMPRESSION: Live IUP at 33 weeks 5 days with an estimated weight of 2110 g correlating to 6 percentile indicating intrauterine growth restriction. Biophysical profile 8 of 8 Amniotic fluid index normal at 14 cm Dictated by: Francisco Meek MD 06/08/2021 17:42 Francisco Meek MD in OV 06/08/2021 17:42
== END ==
PROVIDERS: PCP Internal Medicine Adolescent Medicine; Visit Provider Nurse Practitioner Obstetrics & Gynecology
DX: O36.5990 Maternal care for other known or suspected poor fetal growth, unspecified trimester, not applicable or unspecified (principal); Z3A.35 35 weeks gestation of pregnancy
CPT/HCPCS: 76816; 76819

== ENCOUNTER → 2021-06-15 16:42 | Outpatient (CLI) | payer OTHER, SELFPAY | PROVIDERS: Visit Provider Nurse Practitioner Obstetrics & Gynecology | DX: Z34.90 Encounter for supervision of normal pregnancy, unspecified, unspecified trimester (principal); Z3A.36 36 weeks gestation of pregnancy | CPT/HCPCS: 86403 ==

== ENCOUNTER 2021-07-05 16:54 | Inpatient (IN) | payer OTHER, SELFPAY ==
[2021-07-05 17:06] VITALS: BMI 29.2
[2021-07-05 17:45] LABS: Coronavirus 19, PCR Not Detected (NotDetected); Influenza A, PCR Not Detected (NotDetected); Influenza B, PCR Not Detected (NotDetected)
[2021-07-05 17:49] LABS: Basophils % 0.3 % (0.1-2.0); Eosinophils # 0.1 K/mm3 (0.0-0.4); Eosinophils % 0.9 % (0.1-12.0); Hematocrit 33.2 % (37.0-47.0); Hemoglobin 11.2 g/dL (12.2-16.2); Lymphocytes # 2.4 K/mm3 (0.7-4.5); Lymphocytes % 19.4 % (10-50); Mean Corpuscular HGB Conc 33.9 g/dL (31.8-35.4); Mean Corpuscular Hemoglobin 31.9 pg (27.0-31.2); Mean Corpuscular Volume 94.4 fl (81-99); Mean Platelet Volume 9.8 fl (7.4-10.4); Monocytes # 0.7 K/mm3 (0.1-1.0); Monocytes % 5.8 % (1.7-9.3); Neutrophils % 73.6 % (37.0-80.0); Platelet Count 315 K/mm3 (142-424); Red Blood Count 3.52 M/mm3 (4.20-5.40); Red Cell Distribution Width 13.4 % (11.5-17.5); White Blood Count 12.2 K/mm3 (4.8-10.8)
[2021-07-05 18:38] VITALS: BMI 29.2
--- NOTE | 2021-07-06 08:25 | HMH.OBAPHP ---
OB - H&P: HPI Antepartum - History of Present Illness Chief complaint: Term History of present illness: 26-year-old 2 para 1 at 39+ weeks gestational age. She has been feeling a lot of pressure so we elected to induce her labor at term. - History of Present Criteria for establishing EDC:: LMP confirmed by 1st trimester US care: good care Ultrasounds: normal 1st trimester US, normal mid trimester US Obstetrical complications: none - Labs Blood type: O (+) positive Rubella: nonimmune RPR/VDRL: nonreactive GBS status: negative HBsAG: negative [facility] History I have reviewed the patient's past medical history: Yes Medical History: Reports:: Palpitations Denies:: Anxiety, Asthma, Depression, Diabetes Mellitus Type 1, Hyperlipidemia, Hypertension *Have you ever received a pneumonia vaccine?: No *Have you received a flu vaccine this season?: No Laterality Cases: Bilateral: Tonsillectomy Other Surgeries: Yes: Other. No: Amputation: No Fractures: Yes (TOE) - *Social History Smoking Status: Current every day smoker Tobacco Type: e-cigarettes # Packs/Day (cigarettes): 0 Alcohol Intake: never Alcohol Intake Frequency:: other Substance Use Type: denies use *Occupational Status:: employed *Travel in the last 8 weeks: None - Psychiatric History Pschychiatric History:: Denies:: Anxiety, Depression Family Hx:: No significant family history Para: 1 Review of Systems - Review of Systems Review of systems:: pertinent systems reviewed and negative unless documented below Meds Home Medications Medication Instructions Recorded Confirmed Type PNV 153-FA 400 mcg-om3 35 mg-dha 1 tab PO DAILY 11/29/20 07/05/21 History 25 mg-epa 5 mg-fish oil chew tablet labetalol 100 mg tablet 50 mg PO BID tab 03/10/21 07/05/21 History Famotidine [Acid Acid Tender] 20 mg PO DAILY 07/05/21 07/05/21 History Ferrous Sulfate 325 mg PO DAILY 07/05/21 07/05/21 History Allergies Allergy/AdvReac Type Severity Reaction Status Date / Time No Known Allergies Allergy Verified 06/30/21 10:16 OB - H&P: Exam - Constitutional no acute distress - Routine HEENT Exam Head: Present: normocephalic Eye: Present: EOMI, PERRL ENT: Present: mucous membranes moist - Routine Neck Exam Present: supple, full ROM - Routine Respiratory Exam Absent: accessory muscle use (good air entry bilaterally), respiratory distress, wheezes, crackles - Routine Cardiovascular Exam Present: RRR. Absent: murmur - Routine Abdominal Exam Present: soft, normoactive bowel sounds. Absent: tenderness, distended, guarding - Routine Rectal Exam Patient deferred: visual exam, digital exam - Routine Exam Patient deferred: external exam, groin exam, perineal exam - Routine Extremities Exam Present: full ROM. Absent: cyanosis, edema - Routine Skin Exam Present: intact. Absent: cyanosis - Routine Neurological Exam Present: alert, oriented X3 - Routine Psychiatric Exam Present: normal affect OB - Results - Labs Labs: Short CBC 07/05/21 Range/Units 17:31 WBC 12.2 H (4.8-10.8) K/mm3 Hgb 11.2 L (12.2-16.2) g/dL Hct 33.2 L (37.0-47.0) % Plt Count 315 (142-424) K/mm3 OB - A/P Antepartum (1) Normal delivery at term Status: Acute - Additional Plan Planning to breastfeed?: Yes Plan: induction Additional Information:: We have ruptured her membranes and there is clear fluid. She is having regular contractions. We will expect a vaginal delivery.
--- NOTE | 2021-07-06 08:27 | HMH.LABNOT ---
Labor Note - Subjective: Date: 07/06/21 Time: 08:27 regular contraction - Objective: NST:: Reactive Contractions:: every 2-3 minutes Cervical Dilation:: 2-3 Effacement:: 75% Station: 0 Membranes: artificially ruptured - Fetus: Monitoring?: Yes monitoring type:: External - Assessment: Labor progressing?: Yes Cephalopelvic disproportion?: No Patient Problems: All Active Problems PVC (premature ventricular contraction) (Acute) Palpitations (Acute) Dehydration during (Acute) Acute bronchitis (Acute) Pharyngitis (Acute) Viral syndrome (Acute) Normal delivery at term (Acute) IUGR (intrauterine growth restriction) (Acute) Tobacco smoking complicating (Acute) Rubella non-immune status, antepartum (Acute) COVID-19 affecting , antepartum (Acute) History of intrauterine growth restriction in prior , currently (Acute) Bicuspid aortic valve (Acute) HTN (hypertension) (Acute) (Acute) - Plan: Anesthesia for epidural?: Yes Continue to labor down?: Yes Plan for ?: No Continue to monitor?: Yes Start pushing?: No
--- NOTE | 2021-07-06 11:35 | HMH.LABNOT ---
Labor Note - Subjective: Date: 07/06/21 Time: 11:35 regular contraction - Objective: NST:: Reactive Contractions:: every 2-3 minutes Cervical Dilation:: 4 Effacement:: 90% Station: 0 Membranes: artificially ruptured - Fetus: Monitoring?: Yes monitoring type:: Internal and External Comment:: I inserted an IUPC - Assessment: Labor progressing?: Yes Cephalopelvic disproportion?: No Patient Problems: All Active Problems PVC (premature ventricular contraction) (Acute) Palpitations (Acute) Dehydration during (Acute) Acute bronchitis (Acute) Pharyngitis (Acute) Viral syndrome (Acute) Normal delivery at term (Acute) IUGR (intrauterine growth restriction) (Acute) Tobacco smoking complicating (Acute) Rubella non-immune status, antepartum (Acute) COVID-19 affecting , antepartum (Acute) History of intrauterine growth restriction in prior , currently (Acute) Bicuspid aortic valve (Acute) HTN (hypertension) (Acute) (Acute) - Plan: Anesthesia for epidural?: Yes Continue to labor down?: Yes Plan for ?: No Continue to monitor?: Yes Start pushing?: No
--- NOTE | 2021-07-06 14:33 | HMH.DN ---
- Delivery Note Delivery Date:: 07/06/21 Delivery Time:: 13:59 Anesthesia Type: Epidural Was labor medically induced?: Yes Induction method: per pitocin protocol Gestational age (weeks): 39 Infant delivered prior to 39 weeks?: No Justification for early elective delivery:: IUGR Gender: Female at 1 minute: 8 at 5 minutes: 9 Delivery Procedure:: She is a 26-year-old 2 para 1 at 39 and 1 weeks gestational age. She had a small for gestational age and as result of that we elected to induce her labor at term. She was started on Cervidil on the evening of July 05, 2021. She subsequently had her membranes ruptured and progressed to full dilation. She delivered spontaneously a liveborn female child at 1:59 PM in the afternoon of July 06, 2021. On deliver the head the anterior shoulder then easily delivered followed by the rest the infant's body atraumatically. The oropharynx and nasopharynx were bulb suction. The baby was vigorous. We allowed the cord to continue to pulsate for approximately 1 minute. The cord was then doubly clamped and cut and the was placed on the mother's abdomen for further care. The nurses assigned Apgars of 8 at 1 minute and 9 at 5 minutes. We then obtained cord blood. She received IV oxytocin and using gentle traction the cord and countertraction the fundus I was able to easily deliver the placenta intact 4 minutes after delivery. There were no perineal or vaginal lacerations requiring suturing. Perineum was intact. She has O+ blood, she is rubella nonimmune and was group B streptococcus negative. She plans to breast-feed. Her estimated blood loss was approximately 200 cc. Placental Delivery Description: Spontaneous
[2021-07-07 06:49] LABS: Hemoglobin 11.5 g/dL (12.2-16.2)
--- NOTE | 2021-07-07 13:16 | HMH.OBDCSM ---
General - General Admission date:: 07/05/21 Discharge date: 07/07/21 HPI - History of Present Illness History of present illness: She is a 26-year-old two para one at 39 weeks gestational age. She had a baby that was small for gestational age at six centile. As result of this she was admitted for induction of labor at term. Hospital Course Hospital Course: She was admitted on the evening of July 05, 2021 and was started with Cervidil. The following morning she was started on IV oxytocin had her membranes ruptured. Under labor epidural she progressed to full dilation and delivered spontaneously a liveborn female child at 1:59 PM in the afternoon of July 06, 2021. The baby weighed 6 lbs 4 oz and was 19 in long. She had Apgars of eight at 1 minute and nine at 5 minutes. She has done well post and has remained afebrile throughout her hospitalization. She is eating and drinking and ambulating. She is breast-feeding. Her lochia is normal. She has O+ blood, she is rubella nonimmune and will receive MMR. She was group B streptococcus negative. Her oil bay technician is Dr. Zhu. She will be discharged home to follow-up with me in approximately 2 weeks time. She will continue with her vitamins and iron. She was given the usual instructions with respect to limiting her activity, driving and sexual activity. Her condition on discharge is stable and improved. Rhogam Administration: Not Indicated Objective no acute distress Results Labs on day of discharge: Labs from last 24 hours 07/07/21 06:36 Hgb 11.5 L Hct 35.0 L DS: Diagnosis - Discharge Diagnosis (1) Normal delivery at term Status: Acute (2) COVID-19 affecting , antepartum Status: Acute Problem details: 32 weeks (3) History of intrauterine growth restriction in prior , currently Status: Acute (4) IUGR (intrauterine growth restriction) Status: Acute Problem details: EFW 6% (5) Rubella non-immune status, antepartum Status: Acute (6) Tobacco smoking complicating Status: Acute Discharge Plan - Patient Discharge Instructions ACTIVITY: No heavy lifting DIET: continue same diet Additional Instructions: *Nothing in the Vagina for 6 weeks* *No heavy lifting* *No strenuous activity* Patient Instructions: Depression, Hemorrhage, DI for Labor and Delivery, Vaginal , DI for Pre-eclampsia, H Post Discharge Instructions, Preventing the Spread of Coronavirus Discharge Instructions - Follow up Plan Follow up with: Roney Posada MD [Staff Physician] - Disposition: Home, Self-Care Condition at discharge:: Stable Home Medications: Home Medications Medication Instructions Recorded Confirmed Type PNV 153-FA 400 mcg-om3 35 mg-dha 1 tab PO DAILY 11/29/20 07/05/21 History 25 mg-epa 5 mg-fish oil chew tablet labetalol 100 mg tablet 50 mg PO BID tab 03/10/21 07/05/21 History Famotidine [Acid Central Processing Technician] 20 mg PO DAILY 07/05/21 07/05/21 History Ferrous Sulfate 325 mg PO DAILY 07/05/21 07/05/21 History Prescriptions/Medication Reconciliation: Continued PNV 153-FA 400 mcg-om3 35 mg-dha 25 mg-epa 5 mg-fish oil chew tablet 1 tab PO DAILY labetalol 100 mg tablet 50 mg PO BID tab Ferrous Sulfate 325 mg PO DAILY Famotidine [Acid Central Processing Technician] 20 mg PO DAILY - Problem Reconciliation Problems Reviewed?: Yes
== END 2021-07-07 17:45 | disposition home or self-care (01) | DRG 807 ==
LOC: OBOUT 16:54 → OB 07-06 08:23
PROVIDERS: Admitting Provider Nurse Practitioner Obstetrics & Gynecology; PCP Internal Medicine Adolescent Medicine; Visit Provider Nurse Practitioner Obstetrics & Gynecology
DX: O36.5930 Maternal care for other known or suspected poor fetal growth, third trimester, not applicable or unspecified (principal); Z37.0 Single live birth; Z3A.39 39 weeks gestation of pregnancy; Z23 Encounter for immunization
CPT/HCPCS: 59409; 59025; 85014; 85018; 85025; 86850; 90707; 94761; C1758; C9803; G0283; U0003; U0005

== ENCOUNTER 2021-08-03 17:56 | Emergency (ER) | payer OTHER, SELFPAY ==
[2021-08-03 18:06] VITALS: BP 147/90; PULSE 85; RESP 18; TEMP 36.3; O2SAT 94; BMI 24.7
[2021-08-03 18:29] LABS: Basophils # 0.1 K/mm3 (0-0.2); Basophils % 1.1 % (0.1-2.0); Eosinophils # 0.2 K/mm3 (0.0-0.4); Eosinophils % 2.5 % (0.1-12.0); Hematocrit 42.3 % (37.0-47.0); Hemoglobin 13.7 g/dL (12.2-16.2); Lymphocytes # 3.2 K/mm3 (0.7-4.5); Lymphocytes % 35.3 % (10-50); Mean Corpuscular HGB Conc 32.3 g/dL (31.8-35.4); Mean Corpuscular Hemoglobin 31.2 pg (27.0-31.2); Mean Corpuscular Volume 96.6 fl (81-99); Mean Platelet Volume 9.4 fl (7.4-10.4); Monocytes # 0.4 K/mm3 (0.1-1.0); Monocytes % 4.4 % (1.7-9.3); Neutrophils # 5.1 K/mm3 (1.8-7.8); Neutrophils % 56.7 % (37.0-80.0); Platelet Count 286 K/mm3 (142-424); Red Blood Count 4.38 M/mm3 (4.20-5.40); Red Cell Distribution Width 12.8 % (11.5-17.5); White Blood Count 9.1 K/mm3 (4.8-10.8)
[2021-08-03 18:47] LABS: Chloride 107 mmol/L (98-107); Potassium 3.8 mmoL/L (3.5-5.1); Sodium 142 mmol/L (136-145)
[2021-08-03 18:49] LABS: Blood Urea Nitrogen 6 mg/dl (7-17); Creatinine Clearance Estimated 169 mL/min (50-200); Estimated Glomerular Filt Rate 120 ml/min (>60); GFR (African American) 145 ML/MIN (>60)
[2021-08-03 18:50] LABS: Alanine Aminotransferase 29 U/L (12-78); Albumin Level 4.3 g/dl (3.5-5.0); Albumin/Globulin Ratio 1.6 (1.1-1.8); Alkaline Phosphatase 126 U/L (38-126); Anion Gap 11.8 mEq/L (5-15); Aspartate Amino Transferase 39 U/L (14-36); Bilirubin,Total 1.1 mg/dl (0.2-1.3); Calcium 9.3 mg/dl (8.4-10.2); Carbon Dioxide 27 mmol/L (22.0-30.0); Globulin 2.7 g/dL (1.3-3.2); Glucose 119 mg/dl (74-100); Lipase 35 U/L (23-300)
[2021-08-03 19:45] LABS: Microscopic, Urine URINE MICROSCOPIC (MICROSCOPIC)
[2021-08-03 19:56] LABS: Appearance,Urine CLEAR (Clear); Bilirubin,Urine Negative (Negative); Blood, Urine TRACE-I (Negative); Color,Urine YELLOW (Yellow); Glucose,Urine (UA) Negative (Negative); Ketones,Urine Negative (Negative); Leukocyte Esterase,Urine Negative (Negative); Nitrate,Urine Negative (Negative); Protein,Urine Negative (Negative); Specific Gravity, Urine 1.025 (1.005-1.030); Urobilinogen,Urine 0.2 EU/dl (0.2)
--- NOTE | 2021-08-03 20:04 | HMH.EDABDPAI ---
ED Disposition Clinical Impression: Gastritis Disposition: Home, Self-Care Condition on Discharge: Good Instructions: DI for Acute Abdominal Pain Additional Instructions: Please follow-up with your primary care physician in 2 to 3 days for further management. Please take Mylanta and/or Maalox for acute flareups, which you can buy over the counter. Please continue to use your famotidine as prescribed. Please return back to the emergency department for any concerning symptoms such as worsening abdominal pain, vomiting, fevers, symptoms that do not improve or any other concerning symptoms. Referrals: Oren Jones MD [Primary Care Provider] - Time of Disposition: 08:00 - Critical Care Critical Care Time: No Attestation: On 08/03/21, the high probability of a clinically significant, sudden or life threatening deterioration of the following system(s) required my full and direct attention, intervention and personal management. The time I documented below is in addition to time spent performing reported procedures but includes the following listed in this critical care notation. Medical Decision Making - Rock Inquiry Pt receiving controlled substance: No Vital Signs: 08/03/21 18:06 08/03/21 20:07 08/03/21 20:10 Temperature 97.4 F L 98.1 F 98.1 F Temperature Source Oral Oral Oral Pulse Rate 60 64 Pulse Rate [Left Radial] 85 Respiratory Rate 18 16 16 Blood Pressure 133/80 130/80 Blood Pressure [Left Arm] 147/90 H Blood Pressure Mean [Left Arm] 109 Blood Pressure Source Automatic Cuff Blood Pressure Source [Left Arm] Automatic Cuff Blood Pressure Position Supine Blood Pressure Position [Left Arm] Sitting 02 Sat by Pulse Oximetry 94 L Oxygen Delivery Method Room Air Room Air - Lab Data Lab Results 08/03/21 18:21: WBC 9.1, RBC 4.38, Hgb 13.7, Hct 42.3, MCV 96.6, MCH 31.2, MCHC 32.3, RDW 12.8, Plt Count 286, MPV 9.4, Neut % (Auto) 56.7, Lymph % (Auto) 35.3, [place] % (Auto) 4.4, Eos % (Auto) 2.5, Baso % (Auto) 1.1, Neut # (Auto) 5.1, Lymph # (Auto) 3.2, [place] # (Auto) 0.4, Eos # (Auto) 0.2, Baso # (Auto) 0.1 08/03/21 18:21: Sodium 142, Potassium 3.8, Chloride 107, Carbon Dioxide 27, Anion Gap 11.8, BUN 6 L, Creatinine 0.60, Estimated Creat Clear 169, Estimated GFR 120, Est GFR ( Amer) 145, Glucose 119 H, Calcium 9.3, Total Bilirubin 1.1, AST 39 H, ALT 29, Alkaline Phosphatase 126, Total Protein 7.0, Albumin 4.3, Globulin 2.7, Albumin/Globulin Ratio 1.6, Lipase 35 08/03/21 18:21: Lactate 1.0 08/03/21 19:40: Urine Color Yellow, Urine Appearance Clear, Urine pH 6.0, Ur Specific [place] 1.025, Urine Protein Negative, Urine Glucose (UA) Negative, Urine Ketones Negative, Urine Blood Trace-i, Urine Nitrate Negative, Urine Bilirubin Negative, Urine Urobilinogen 0.2, Ur Leukocyte Esterase Negative, Urine RBC Occasional, Urine WBC Occasional, Ur Squamous Epith Cells 3-5, Urine Bacteria None Result diagrams: 08/03/21 18:21 08/03/21 18:21 Orders (Tests/Meds): ED MEDICATIONS Discontinued Medications Generic Name Dose Route Start Last Admin Trade Name Freq PRN Reason Stop Dose Admin Belladonna Alkaloids 60 ml 08/03/21 18:25 08/03/21 18:26 Gi Cocktail 60ml Udc PO 08/03/21 18:26 60 ml ONCE ONE Administration Medical Decision Narrative: Miss Lew is a 26 year old 4 week post female w/ PMH for GERD (Currently on Famotidine), who presents to the ED for intermittent epigastric pain during the last 48 hours. Patient is afebrile and hemodynamically stable on arrival. Non toxic appearing. Physical exam patient has mild abd pain in epigastric region, non peritonitic no rebound or guarding noted. Patient is well appearing. Differentials to consider include: Gastritis, PUD, Biliary disease/cholecystitis, pancreatitis, UTI. Basic labs, UA, lipase, lactic acid are obtained for further evaluation results are non actionable. Patient is given GI cocktail and shortly reports symptoms have compl
[2021-08-03 20:07] VITALS: BP 133/80; PULSE 60; RESP 16; TEMP 36.7; O2SAT 97
[2021-08-03 20:08] LABS: RBC,Urine Occasional #/hpf (0-3); WBC,Urine Occasional #/hpf (0-3)
[2021-08-03 20:10] VITALS: BP 130/80; PULSE 64; RESP 16; TEMP 36.7; O2SAT 95
== END 2021-08-03 20:10 | disposition home or self-care (01) ==
PROVIDERS: Emergency Provider Student in an Organized Health Care Education/Training Program; PCP Internal Medicine Adolescent Medicine
DX: K29.70 Gastritis, unspecified, without bleeding (principal); R00.2 Palpitations; F17.290 Nicotine dependence, other tobacco product, uncomplicated
CPT/HCPCS: 80053; 81001; 83605; 83690; 85025; 99283

== ENCOUNTER 2021-08-14 23:34 | Emergency (ER) | payer OTHER, SELFPAY ==
[2021-08-14 23:35] VITALS: BP 165/94; PULSE 71; RESP 16; TEMP 36.6; O2SAT 98; BMI 24.7
[2021-08-14 23:56] LABS: Microscopic, Urine URINE MICROSCOPIC (MICROSCOPIC)
[2021-08-15 00:03] LABS: Urine Pregnancy, HCG Qual. Negative (Negative)
--- NOTE | 2021-08-15 00:03 | HMH.EDNVD ---
ED Disposition Clinical Impression: Transaminitis Cholelithiasis Qualifiers: Cholelithiasis location: gallbladder Cholecystitis presence: without cholecystitis Biliary obstruction: without biliary obstruction Qualified Code(s): K80.20 - Calculus of gallbladder without cholecystitis without obstruction Disposition: Home, Self-Care Condition on Discharge: Good Instructions: DI for Gallstones Additional Instructions: call pcp in am Referrals: Oren Jones MD [Primary Care Provider] - - Critical Care Critical Care Time: No Attestation: On 08/14/21, the high probability of a clinically significant, sudden or life threatening deterioration of the following system(s) required my full and direct attention, intervention and personal management. The time I documented below is in addition to time spent performing reported procedures but includes the following listed in this critical care notation. Medical Decision Making - Medical Records Medical records reviewed: Yes: I reviewed the patient's medical records. - Rock Inquiry Pt receiving controlled substance: No Vital Signs: 08/14/21 23:35 Temperature 97.8 F Temperature Source Oral Pulse Rate [Right Radial] 71 Respiratory Rate 16 Blood Pressure [Right Arm] 165/94 H Blood Pressure Mean [Right Arm] 117 Blood Pressure Source [Right Arm] Automatic Cuff Blood Pressure Position [Right Arm] Sitting 02 Sat by Pulse Oximetry 98 Oxygen Delivery Method Room Air - Lab Data Lab results reviewed: Yes: I reviewed the patient's lab results. Lab Results 08/14/21 23:50: Urine Color Yellow, Urine Appearance Clear, Urine pH 8.0, Ur Specific [place] 1.020, Urine Protein Negative, Urine Glucose (UA) Negative, Urine Ketones Negative, Urine Blood 1+, Urine Nitrate Negative, Urine Bilirubin Negative, Urine Urobilinogen 0.2, Ur Leukocyte Esterase Negative, Urine RBC 5-10, Urine WBC 5-10, Ur Squamous Epith Cells 10-20, Amorphous Sediment Trace 08/14/21 23:50: Urine HCG, Qual Negative 08/15/21 00:00: WBC 10.5, RBC 4.35, Hgb 13.3, Hct 40.2, MCV 92.4, MCH 30.6, MCHC 33.1, RDW 12.5, Plt Count 286, MPV 9.2, Neut % (Auto) 69.5, Lymph % (Auto) 22.6, [place] % (Auto) 4.6, Eos % (Auto) 2.6, Baso % (Auto) 0.7, Neut # (Auto) 7.3, Lymph # (Auto) 2.4, [place] # (Auto) 0.5, Eos # (Auto) 0.3, Baso # (Auto) 0.1, ESR 16 08/15/21 00:00: Sodium 141, Potassium 3.9, Chloride 104, Carbon Dioxide 30, Anion Gap 10.9, BUN 12, Creatinine 0.80, Estimated Creat Clear 127, Estimated GFR 86, Est GFR ( Amer) 104, Glucose 96, Calcium 9.6, Total Bilirubin 1.3, AST 247 H, ALT 177 H, Alkaline Phosphatase 432 H, C-Reactive Protein 4.8 H, Total Protein 7.2, Albumin 4.4, Globulin 2.8, Albumin/Globulin Ratio 1.6, Amylase 73, Procalcitonin 0.052 08/15/21 00:00: Lactate 0.8 08/15/21 00:00: Lipase 65 Result diagrams: 08/15/21 00:00 08/15/21 00:00 Orders (Tests/Meds): ED MEDICATIONS Generic Name Dose Route Start Last Admin Trade Name Freq PRN Reason Stop Dose Admin Lactated Ringer's 1,000 mls @ 999 mls/hr 08/14/21 23:45 08/15/21 00:09 Lactated Ringer's 1000 Ml Bag IV 08/15/21 00:45 999 mls/hr .[id number] KENDRICK Administration Sodium Chloride 8 ml 08/14/21 23:49 Sodium Chloride 0.9% 10ml Vial IV 09/13/21 23:48 NEEDED PRN dilute pepcid Discontinued Medications Generic Name Dose Route Start Last Admin Trade Name Freq PRN Reason Stop Dose Admin Famotidine 20 mg 08/14/21 23:49 08/15/21 00:09 Famotidine 20mg/2ml Vial IV 08/14/21 23:50 20 mg ONCE ONE Administration Iopamidol 70 ml 08/15/21 00:29 08/15/21 00:30 Iopamidol-370 (76%);100ml Bottle IV 08/15/21 00:30 70 ml ONCE ONE Administration Ketorolac Tromethamine 30 mg 08/14/21 23:49 08/15/21 00:09 Ketorolac 30mg/Ml Vial IV 08/14/21 23:50 30 mg ONCE ONE Administration Ondansetron HCl 4 mg 08/14/21 23:49 08/15/21 00:09 Ondansetron 4mg/2ml Vial IV 08/14/21 23:50 4 mg ONCE ONE Administration Sodium
--- NOTE | 2021-08-15 00:05 | CT_ITS ---
PROCEDURE INFORMATION: Exam: CT Abdomen And Pelvis With Contrast Exam date and time: 08/15/2021 12:05 AM Age: 26 years old Clinical indication: Abdominal pain; Epigastric; Additional info: Abdominal pain epigastric TECHNIQUE: Imaging protocol: Computed tomography of the abdomen and pelvis with contrast. Radiation optimization: All CT scans at this facility use at least one of these dose optimization techniques: automated exposure control; mA and/or kV adjustment per patient size (includes targeted exams where dose is matched to clinical indication); or iterative reconstruction. Contrast material: ISOVUE; Contrast volume: 70 ml; Contrast route: IV; COMPARISON: US OB BIOPHYSICAL PROFILE 06/08/2021 1:35 PM FINDINGS: Lungs: No mass/infiltrate at either lung base. No pleural effusion. Liver: There is mild hepatomegaly. There is a 5.0 x 4.6 x 4.5 cm mass arising from the lateral margin of the lateral segment of the left hepatic lobe. Late arterial phase imaging of the liver demonstrates that the mass is isodense with respect to the remainder of the liver with a central area of relative nonenhancement. This could represent a slowly enhancing central scar. Primary diagnostic consideration would be focal nodular hyperplasia. To further evaluate this patient correlation with magnetic resonance imaging of the liver with arterial, venous phase and delayed imaging would be helpful. There is no intrahepatic biliary dilatation. Gallbladder and bile ducts: There are gallstones present within the lumen of the gallbladder. No evidence of extrahepatic biliary dilatation. Pancreas: Normal. No ductal dilation. Spleen: Normal. No splenomegaly. Adrenal glands: Normal. No mass. Kidneys and ureters: Normal. No hydronephrosis. Stomach and bowel: Fecal retention throughout the colon. No obstruction. No mucosal thickening. Small bowel mesentery is normal. Appendix: Unremarkable. Intraperitoneal space: Trace free fluid within the cul-de-sac. No free air. Vasculature: Unremarkable. No abdominal aortic aneurysm. Lymph nodes: Unremarkable. No enlarged lymph nodes. Urinary bladder: Unremarkable as visualized. Limited distention. Reproductive: Unremarkable as visualized. Bones/joints: Unremarkable. No acute fracture. Soft tissues: Unremarkable. IMPRESSION: 1. Mild hepatomegaly. 2. 5.0 x 4.6 x 4.5 cm mass arising from the lateral aspect of the liver. It is isodense to enhanced hepatic tissue. There is a central area of non enhancement, which could represent a central scar. Primary diagnostic consideration is focal nodular hyperplasia. Correlation with magnetic resonance imaging of the abdomen with attention to the liver would be helpful. 3. Gallstones are present within the lumen of the gallbladder. No evidence of extrahepatic biliary dilatation. 4. Trace free fluid identified within the cul-de-sac. This is of uncertain clinical significance.
[2021-08-15 00:07] LABS: Appearance,Urine CLEAR (Clear); Bilirubin,Urine Negative (Negative); Blood, Urine 1+ (Negative); Color,Urine YELLOW (Yellow); Glucose,Urine (UA) Negative (Negative); Ketones,Urine Negative (Negative); Leukocyte Esterase,Urine Negative (Negative); Nitrate,Urine Negative (Negative); Protein,Urine Negative (Negative); Urobilinogen,Urine 0.2 EU/dl (0.2)
[2021-08-15 00:11] LABS: Amorphous Sediment,Urine Trace /lpf
[2021-08-15 00:12] LABS: Basophils # 0.1 K/mm3 (0-0.2); Basophils % 0.7 % (0.1-2.0); Eosinophils # 0.3 K/mm3 (0.0-0.4); Eosinophils % 2.6 % (0.1-12.0); Hematocrit 40.2 % (37.0-47.0); Hemoglobin 13.3 g/dL (12.2-16.2); Lymphocytes # 2.4 K/mm3 (0.7-4.5); Lymphocytes % 22.6 % (10-50); Mean Corpuscular HGB Conc 33.1 g/dL (31.8-35.4); Mean Corpuscular Hemoglobin 30.6 pg (27.0-31.2); Mean Corpuscular Volume 92.4 fl (81-99); Mean Platelet Volume 9.2 fl (7.4-10.4); Monocytes # 0.5 K/mm3 (0.1-1.0); Monocytes % 4.6 % (1.7-9.3); Neutrophils # 7.3 K/mm3 (1.8-7.8); Neutrophils % 69.5 % (37.0-80.0); Platelet Count 286 K/mm3 (142-424); Red Blood Count 4.35 M/mm3 (4.20-5.40); Red Cell Distribution Width 12.5 % (11.5-17.5); White Blood Count 10.5 K/mm3 (4.8-10.8)
[2021-08-15 00:17] LABS: Alanine Aminotransferase 177 U/L (12-78); Albumin Level 4.4 g/dl (3.5-5.0); Albumin/Globulin Ratio 1.6 (1.1-1.8); Alkaline Phosphatase 432 U/L (38-126); Amylase 73 U/L (30-110); Anion Gap 10.9 mEq/L (5-15); Aspartate Amino Transferase 247 U/L (14-36); Bilirubin,Total 1.3 mg/dl (0.2-1.3); Blood Urea Nitrogen 12 mg/dl (7-17); Calcium 9.6 mg/dl (8.4-10.2); Carbon Dioxide 30 mmol/L (22.0-30.0); Chloride 104 mmol/L (98-107); Creatinine Clearance Estimated 127 mL/min (50-200); Estimated Glomerular Filt Rate 86 ml/min (>60); GFR (African American) 104 ML/MIN (>60); Globulin 2.8 g/dL (1.3-3.2); Glucose 96 mg/dl (74-100); Lipase 65 U/L (23-300); Potassium 3.9 mmoL/L (3.5-5.1); Sodium 141 mmol/L (136-145); Total Protein,Serum 7.2 g/dl (6.3-8.2)
[2021-08-15 00:20] LABS: Lactic Acid 0.8 mmol/L (0.7-2.1)
[2021-08-15 00:22] LABS: C-Reactive Protein 4.8 mg/L (0-4)
[2021-08-15 00:30] VITALS: BP 153/95; PULSE 68; O2SAT 99
[2021-08-15 00:36] LABS: Erythrocyte Sedimentation Rate 16 mm/hr (0-20); Procalcitonin 0.052 ng/mL (0.0-2.0)
[2021-08-15 01:16] VITALS: BP 154/96; PULSE 64; RESP 16; TEMP 36.7; O2SAT 99
== END 2021-08-15 01:22 | disposition home or self-care (01) ==
PROVIDERS: Emergency Provider Emergency Medicine; PCP Internal Medicine Adolescent Medicine
DX: K80.20 Calculus of gallbladder without cholecystitis without obstruction (principal); R74.01 Elevation of levels of liver transaminase levels; F41.8 Other specified anxiety disorders
CPT/HCPCS: 74177; 80053; 81001; 81025; 82150; 83605; 83690; 84145; 85025; 85651; 86140; 96365; 96375; 99283; J2405; Q9967

== ENCOUNTER → 2021-08-22 08:54 | Outpatient (CLI) | payer OTHER, SELFPAY ==
--- NOTE | 2021-08-22 08:56 | US_ITS ---
PROCEDURE: US ABDOMEN LIMITED CLINICAL INDICATION: CALCULUS OF GALBLADDER W/ ACUTE CHOLECYSTITIS COMPARISON: CT CT ABDOMEN PELVIS W CON from 08/15/2021 FINDINGS: PANCREAS: Unremarkable. No obvious mass or abnormal fluid collection. No ductal dilatation LIVER: There is an isoechoic mass along the lateral aspect of the left hepatic lobe measuring approximately 5 cm. No hypervascularity evident. RIGHT KIDNEY: Unremarkable. Normal size and echogenicity. No hydronephrosis GALLBLADDER: Gallstones are present. There are several small stones in 1 larger stone at approximately 2 cm. No gallbladder wall thickening or pericholecystic fluid. Common bile duct is normal at 2 mm. IMPRESSION: 5 cm isoechoic mass of the left hepatic lobe Cholelithiasis. Dictated by: Francisco Meek MD 08/22/2021 10:34 Francisco Meek MD in [place] 08/22/2021 10:34
== END ==
PROVIDERS: PCP Internal Medicine Adolescent Medicine; Visit Provider Nurse Practitioner Family
DX: K80.00 Calculus of gallbladder with acute cholecystitis without obstruction (principal)
CPT/HCPCS: 76705

== ENCOUNTER → 2021-09-07 09:03 | Outpatient (CLI) | payer OTHER, SELFPAY ==
--- NOTE | 2021-09-07 09:26 | MR_ITS ---
PROCEDURE INFORMATION: Exam: MR Abdomen Without and With Contrast Exam date and time: 09/07/2021 9:26 AM Age: 26 years old Clinical indication: Abdominal pain; Additional info: Liver lesion. Liver lesion seen on CT. 16ml prohance injected TECHNIQUE: Imaging protocol: MR of the abdomen without and with intravenous contrast. Contrast material: PROHANCE; Contrast volume: 16 ml; Contrast route: IV; COMPARISON: CT ABDOMEN PELVIS W CON 08/15/2021 12:18 AM FINDINGS: Heart: Visualized heart and lung bases are normal. Liver: Mild hepatomegaly. No significant signal loss on out of phase imaging. Within the far lateral aspect of the left hepatic lobe there is a 5.8 x 4.4 x 4.1 cm (AP by transverse by cc) focus with the following signal characteristics--T1 isointense to adjacent liver parenchyma with a hypointense central region, T2 mildly hyperintense to adjacent liver parenchyma with a mildly hyperintense T2 central region, no diffusion restriction. On early arterial contrast enhanced series there is homogeneous diffuse enhancement of the focus greater than adjacent liver parenchyma, with nonenhancement of the aforementioned central T2 hyperintense region. On portal venous the focus is isointense to adjacent liver parenchyma. On the delayed series there is no significant washout. Additionally, the central T1 hypointense region appears mildly hyperintense to adjacent parenchyma. Additionally, within the posterior aspect of the right hepatic lobe there is a 13 mm mildly T2 hyperintense focus that is isointense on T1, demonstrates no signal loss on out of phase imaging or diffusion restriction. On contrast-enhanced sequences this focus demonstrates near complete enhancement on early arterial phase and remains mildly hyperintense to adjacent liver parenchyma on remaining sequences. Gallbladder and bile ducts: Multiple stones within the gallbladder. Otherwise the gallbladder is unremarkable. No intra or extrahepatic biliary ductal dilation. Pancreas: The pancreas is normal. Spleen: The visualized spleen has normal signal. Adrenal glands: Unremarkable. No mass. Kidneys and ureters: The kidneys abnormal signal and enhancement characteristics. Stomach and bowel: The visualized bowel is normal. Intraperitoneal space: No free fluid. Arteries: No abdominal aortic aneurysm. Bones/joints: Visualized osseous structures are normal. Soft tissues: Visualized soft tissues are unremarkable. IMPRESSION: 1. Imaging findings within the lateral aspect of the left hepatic lobe represent focal nodular hyperplasia. 2. Imaging findings within the posterior aspect of the right hepatic lobe, likely represent benign etiology, possibly a small FNH as well. If clinical concern persists consider further evaluation with liver MRI with a hepatic biliary biliary agent or nuclear medicine study. 3. Mild hepatomegaly. 4. Cholelithiasis.
[2021-09-07 10:55] LABS: Basophils # 0.1 K/mm3 (0-0.2); Basophils % 1.4 % (0.1-2.0); Eosinophils # 0.3 K/mm3 (0.0-0.4); Hematocrit 39.7 % (37.0-47.0); Hemoglobin 13.4 g/dL (12.2-16.2); Lymphocytes # 3.8 K/mm3 (0.7-4.5); Mean Corpuscular HGB Conc 33.7 g/dL (31.8-35.4); Mean Corpuscular Hemoglobin 30.6 pg (27.0-31.2); Mean Corpuscular Volume 90.7 fl (81-99); Mean Platelet Volume 8.9 fl (7.4-10.4); Monocytes # 0.5 K/mm3 (0.1-1.0); Monocytes % 6.6 % (1.7-9.3); Neutrophils # 3.2 K/mm3 (1.8-7.8); Platelet Count 288 K/mm3 (142-424); Red Blood Count 4.38 M/mm3 (4.20-5.40); Red Cell Distribution Width 12.4 % (11.5-17.5)
[2021-09-07 11:20] LABS: Urine Pregnancy, HCG Qual. Negative (Negative)
[2021-09-07 23:45] LABS: Alanine Aminotransferase 25 U/L (12-78); Albumin Level 4.6 g/dl (3.5-5.0); Albumin/Globulin Ratio 1.8 (1.1-1.8); Alkaline Phosphatase 171 U/L (38-126); Anion Gap 14.1 mEq/L (5-15); Aspartate Amino Transferase 25 U/L (14-36); Bilirubin,Total 0.5 mg/dl (0.2-1.3); Blood Urea Nitrogen 12 mg/dl (7-17); Carbon Dioxide 27 mmol/L (22.0-30.0); Chloride 103 mmol/L (98-107); Estimated Glomerular Filt Rate 100 ml/min (>60); GFR (African American) 121 ML/MIN (>60); Globulin 2.6 g/dL (1.3-3.2); Glucose 79 mg/dl (74-100); Potassium 4.1 mmoL/L (3.5-5.1); Sodium 140 mmol/L (136-145); Total Protein,Serum 7.2 g/dl (6.3-8.2)
== END ==
PROVIDERS: Surgery; PCP Internal Medicine Adolescent Medicine; Visit Provider Nurse Practitioner Family
DX: K76.9 Liver disease, unspecified (principal)
CPT/HCPCS: 36415; 74183; 80053; 81025; 85025; A9576; C9803; U0003; U0005

== ENCOUNTER → 2021-09-07 10:32 | Outpatient (CLI) | payer OTHER, SELFPAY | PROVIDERS: Visit Provider Surgery | DX: Z01.812 Encounter for preprocedural laboratory examination (principal); Z11.52 Encounter for screening for COVID-19; K80.20 Calculus of gallbladder without cholecystitis without obstruction | CPT/HCPCS: 36415; 80053; 81025; 85025; C9803; U0003; U0005 ==

== ENCOUNTER 2021-09-09 10:11 | Day surgery (SDC) | payer OTHER, SELFPAY ==
[2021-09-09] VITALS (10 sets, daily range): BP systolic 135–187; BP diastolic 71–93; PULSE 66–89; RESP 16–25; TEMP 36.3–36.4; O2SAT 94–98; BMI 26.1
--- NOTE | 2021-09-09 12:28 | HMH.ANESCL ---
[facility] Anesthesia Checklist - Patient Identification Patient Identification: Arm Band - Structural Data Admitted From: Home Planned Operative Procedure/s: Lap. cholecystectomy Consent for Planned Operative Procedure(s) Verified: Yes - NPO Status Verified Time NPO: 00:00 - Additional verifications Anesthesia Reactions: No Hx Blood Transfusions: No Blood Transfusion Reaction: No - Airway Assessment C-Spine Mobility Assessed: Yes TMJ Mobility Assessed: Yes Dentition: Good Dentition - Neurological Assessment Level of Consciousness: Awake Hx Seizures: No Numbness or tingling in extremities: No - Anesthesia Plan Anesthesia Risk discussed: Yes Anesthesia Plan: Verified ASA Class: II Anesthesia Type: General [facility] History I have reviewed the patient's past medical history: Yes Medical History: Reports:: Gastroesophageal Reflux Disease(GERD), Heart Murmur, Palpitations Denies:: Anxiety, Asthma, Cancer, Depression, Diabetes Mellitus Type 1, Diabetes Mellitus Type 2, Hyperlipidemia, Hypertension, MRSA, Seizures *Have you ever received a pneumonia vaccine?: No *Have you received a flu vaccine this season?: No Other Medical History: Denies: Blood Transfusion Reaction Anesthesia experience/problems:: None Laterality Cases: Bilateral: Tonsillectomy Other Surgeries: Yes: Pacemaker, Other. No: Amputation: No Fractures: Yes (TOE) - *Social History Last grade of school completed: High school graduate Smoking Status: Current every day smoker Tobacco Type: e-cigarettes # Packs/Day (cigarettes): 1 Alcohol Intake: never Alcohol Intake Frequency:: other Substance Use Type: denies use *Occupational Status:: employed Housing: apartment *Travel in the last 8 weeks: None - Psychiatric History Pschychiatric History:: Denies:: Anxiety, Depression Family Hx:: Cancer, Heart Attack
--- NOTE | 2021-09-09 14:13 | HMH.OPNOTE ---
Date of procedure: 09/09/21 Pre-op Diagnosis:: Symptomatic cholelithiasis Liver lesion Post-op Diagnosis:: Acute calculus cholecystitis Procedure performed:: Laparoscopic cholecystectomy Surgeon:: Javad Dover MD Dimension Quarry Supervisor(s):: Kathleen STEVEDORING SUPERVISOR:: Citlalli Davis Anesthesia: GETA Estimated blood loss (mL): 15 Operative findings:: Partially intrahepatic gallbladder Fairly severe soft tissue thickening in and around infundibulum Serosal inflammatory changes consistent with acute cholecystitis Large gallstones Operative note:: After informed consent was obtained, the patient was taken to the operating room and placed in the supine position. General anesthesia was induced and the abdomen was prepped and draped in a sterile fashion. After infiltration with local anesthetic an infraumbilical incision was made. A Veress needle was placed in position. The abdomen was insufflated. A 5 mm optical trocar was placed in position. Under direct visualization, a 12 mm trocar was placed in the subxiphoid position and 2 additional 5 mm trocars were placed in the right upper quadrant. The gallbladder was elevated up and over the liver margin. The gallbladder was partially intrahepatic and dissection was very difficult. The tissue in and around the infundibulum was very thickened. Dissection was very difficult. The tissue around the cystic duct was carefully dissected and three clips were placed proximally. The cystic duct/infundibular margin was transected with harmonic juni. Harmonic juni were then utilized to dissect the gallbladder away from the liver margin with careful attention to control of the cystic artery. Changes consistent with acute cholecystitis with global serosal inflammatory changes were confirmed. The gallbladder was placed in a retrieval bag and removed through the subxiphoid trocar site. The right upper quadrant was thoroughly irrigated. No active bleeding or bile leak was noted. Fascia at the subxiphoid trocar site was reapproximated utilizing 0 Ethibond. The remaining trocars were removed. All wounds were irrigated and skin was closed with 4-0 Monocryl in a subcuticular fashion. Steri-Strips were applied. The patient's anesthetic agents were reversed and extubation was completed prior to transfer to recovery in stable condition. Condition: stable Disposition: PACU Specimens:: Gallbladder and contents Complications:: No immediate
--- NOTE | 2021-09-09 14:30 | P.PN_ITS ---
[facility] Anesthesia Record Part I Intake, IV Amount: 500 Estimated blood loss (mL): 15 Urine output (mL): 0 Blood Pressure: 187/87 SaO2: 94 Pulse Rate: 89 Respiratory Rate: 25 Temperature: 97.4 F Patient is:: Drowsy Stable to PACU at:: 14:27
--- NOTE | 2021-09-09 15:04 | SUR.PHASEI ---
consulted Citlalli Davis, anesthesia regarding hypertension, no orders at this time.
--- NOTE | 2021-09-12 12:43 | HMH.ANESII ---
[facility] Anesthesia Record Part II Discharge Time: 14:57 Destination: Surgical Day Care (OP Surgery) PACU nurse assessment reviewed?: Yes Patient Condition:: Good Anesthesia Complications:: None Swallowing reflex intact?: Yes Cyanosis?: No Blood Pressure: 151/90 Pulse Rate: 71 Temperature: 97.4 F Mental Status: Alert & Oriented Pain level:: 0 Nausea and/or vomitting:: None Intake, IV Amount: 0
[2021-09-12 12:44] VITALS: BP 151/90; PULSE 71; TEMP 36.3
== END 2021-09-09 15:40 | disposition home or self-care (01) ==
LOC: OR 10:12
PROVIDERS: PCP Internal Medicine Adolescent Medicine; Visit Provider Surgery
PROC: 0FT44ZZ Resection of Gallbladder, Percutaneous Endoscopic Approach (ICD-10-PCS; CPT 47562; principal; 2021-09-09 11:30)
DX: K76.9 Liver disease, unspecified; K80.00 Calculus of gallbladder with acute cholecystitis without obstruction; K21.9 Gastro-esophageal reflux disease without esophagitis; R00.2 Palpitations; R01.1 Cardiac murmur, unspecified; I10 Essential (primary) hypertension; Z72.0 Tobacco use; Z80.9 Family history of malignant neoplasm, unspecified; Z82.3 Family history of stroke
CPT/HCPCS: 47562; 96374; J2405; J2710

== ENCOUNTER 2022-09-20 18:08 | Emergency (ER) | payer OTHER, SELFPAY ==
[2022-09-20 19:40] VITALS: BP 148/86; PULSE 93; RESP 18; TEMP 37; O2SAT 98; BMI 27.1
--- NOTE | 2022-09-20 19:59 | EXP.UTC ---
Discharge Plan Disposition Patient Disposition: Home, Self-Care Condition: Good Prescriptions Prescriptions: No Action Auryxia 210 mg iron tablet 210 mg PO DAILY Qty: 30 3RF Rx Instructions: administer with a meal famotidine 20 MG tablet 20 mg PO DAILY hydrocodone-acetaminophen 1 TAB tablet 1 - 2 tab PO Q6HP PRN (Reason: post-op pain) Qty: 17 0RF Referrals Follow up/Referrals: Oren Jones MD [Primary Care Provider] - See instructions Activity Restrictions/Add. Instructions Additional Instructions/Restrictions: *Monitor Temp, Over the counter Motrin or Tylenol as directed/as needed Tylenol every 4 hours and Motrin every 6 hours (as long as your family doctor has told you that you can take it) for fever or pain. and straight to ER if unable to lower temp less than 101.0 after medication given *Warm salt water gargles may help to soothe the throat *Throat Lozenges? *Warm fluids like tea with honey may help to soothe the throat? *Sleep elevated *Humidifier/Vaporizer (your child) before driving, caring for small child, or sending your child to school. Not other antihistamines/allergy medications while taking bromfed Your throat swab was sent for culture. Those results are typically sent to your primary care. Be sure to follow up in 2-3 days with your family doctor/primary care physician if no improvement so they can review those result and treat if necessary. If you don?t have a primary care doctor, I recommend you get one but in the mean time, you will have to return to a walk in clinic Follow up IMMEDIATELY for new or worsening symptoms or no Noticeable improvement over the next 48-72 hours. 911 for difficulty breathing or swallowing Clinical Impressions Clinical Impression: Viral upper respiratory infection Instructions Patient Instructions: Sore Throat Discharge ED Provider[place] Metz[place] [facility] [place] General Stated complaint: sore throat Time Seen by Provider: 09/20/22 19:59 History of Present Illness Provider Complaint: Patient states that she was recently around several of her family members that has tested positive for strep throat States that her throat has been feeling scratchy and she has had headache and feeling achy so she was worried that she may have flu or strep and wanted to get tested Related Data Home Medications Medication Instructions Recorded Confirmed famotidine 20 mg tablet 20 mg PO DAILY Heartburn 07/05/21 08/31/21 Previous Rx's Medication Instructions Recorded hydrocodone 5 mg-acetaminophen 325 1 - 2 tab PO Q6HP PRN post-op pain 09/09/21 mg tablet #17 tabs ferric citrate 210 mg iron tablet 210 mg PO DAILY #30 tabs 04/11/22 (Auryxia) Allergies Allergy/AdvReac Type Severity Reaction Status Date / Time No Known Allergies Allergy Verified 08/31/21 10:11 [facility] Disclaimer: The information contained in this section may have been updated after the patient was seen, as this information can be updated by other users. 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
[2022-09-20 20:20] VITALS: BP 148/86; PULSE 93; RESP 18; TEMP 37; O2SAT 98
[2022-09-21 19:26] LABS: UTC Influenza A Antigen Negative (Negative); UTC Influenza B Antigen Negative (Negative); UTC Strep Screen (Rapid) Negative (Negative)
== END 2022-09-20 20:31 | disposition home or self-care (01) ==
PROVIDERS: Emergency Provider Nurse Practitioner; PCP Internal Medicine Adolescent Medicine
DX: J06.9 Acute upper respiratory infection, unspecified (principal)
CPT/HCPCS: 87804; 87880; 99212; G0463

== ENCOUNTER → 2022-11-30 09:23 | Outpatient (CLI) | payer OTHER, SELFPAY ==
--- NOTE | 2022-11-30 09:24 | CA_ITS ---
APPROVED REPORT EXAM: Comprehensive 2D, Doppler, and color-flow Echocardiogram Embossing Tool Setter: Bea Small, ALEA, RVS Ht: 5 ft 9 in Wt: 190lbs BSA: 2.02 BP: 170/115 mmHg Indications: Bicuspid AoV with Aortic insufficiency, HTN, GERD 2D Dimensions Aortic Root 3.29 cm LA Volume 61.10 mL Left Atrium 2.07 cm LA Volume Index 29.50 mL/m2 (M/F) 16-34 LVOT 2.01 cm (M/F) 1.5-2.5 M-Mode Dimensions RVDd 2.45 cm (0.9-2.6) LA Diam 3.04 cm (1.9-4.0) LVDd 5.43 cm (3.5-5.7) Ao Diam 3.06 cm (2.0-3.7) LVDs 3.74 cm (3.5-5.7) IVSd 1.19 cm (0.6-1.1) PWd 1.00 cm (0.6-1.1) EF (Teich) 58.40% EPSs 0.82 cm FS 31.10% EDV (Teich) 143.10 mL TAPSE 1.70 (<1.7) ESV (Teich) 59.60 mL LV Diastology E Decel Time 213.00 (160-240 msec) E/A Ratio 2.93 MED E' 12.10 (< 7 cm/sec) MED A' 5.50 cm/s E'/MED E' Ratio 7.74 (>14) LAT E' 13.80 (<10 cm/sec) LAT A' 5.20 cm/s E/LAT E' Ratio 6.78 (>14) Aortic Valve LVOT Max 85.00 (70-110 cm/s) LVOT VTI 17.72 cm AoV Peak Wilder. 124.00 (50-130 cm/s) AI PHT 684.00 ms AO Peak GR. 6.10 mmHg AO Mean GR. 3.00 (<5 mmHg) AO VTI 24.49 (18-25 cm) ABEL (VTI) 2.30 (2.5-4.5 cm2) Mitral Valve MV A Velocity 32.00 (40-130 cm/s) E/A Ratio 2.93 MV Decel. Time 213.00 (160-240 ms) MV PHT 70.00 ms Pulmonary Valve PV Peak Velocity 86.00 (50-150 cm/s) CO End VMAX 144.00 cm/s Tricuspid Valve TR P. Velocity 197.00 cm/s RAP Estimate 10.00 mmHg RVSP 25.50 mmHg Left Ventricle Left atrium is normal size, left ventricle is normal size, estimated ejection fraction 55% with no regional wall motion abnormality. Diastolic parameters are within normal range. Right Ventricle Right atrium and right ventricle are normal size and contractility. Aortic Valve Aortic valve appears to be bicuspid with partial fusion of the right and noncoronary cups raphe, there is no aortic stenosis, there is mild aortic insufficiency. Mitral Valve Mitral valve is grossly normal with trace mitral regurgitation. Tricuspid Valve Tricuspid valve is grossly normal, there is no significant tricuspid regurgitation seen. Pulmonic Valve Pulmonic valve is poorly visualized. Great Vessels Aortic root is normal size. Inferior vena cava is normal size with normal inspiratory collapse. Pericardium No significant pericardial effusion noted. Conclusion 1. Normal left ventricular size preserved left ventricular systolic function, estimated ejection fraction 55% with no regional wall motion abnormality, diastolic parameters are within normal range. 2. Abnormal aortic valve as described above with mild aortic insufficiency. 3. No significant pericardial effusion noted. 4. Inferior vena cava normal size with normal inspiratory collapse. Electronically signed by : Vinay Bryant MD 12/01/2022 09:05:58
== END ==
PROVIDERS: PCP Internal Medicine Adolescent Medicine; Visit Provider Nurse Practitioner
DX: R00.2 Palpitations (principal); I10 Essential (primary) hypertension; R94.31 Abnormal electrocardiogram [ECG] [EKG]
CPT/HCPCS: 93306

== ENCOUNTER 2023-04-13 10:41 | Emergency (ER) | payer OTHER, SELFPAY ==
[2023-04-13 10:50] VITALS: BP 119/76; PULSE 74; RESP 17; TEMP 36.7; O2SAT 98; BMI 31.8
--- NOTE | 2023-04-13 11:21 | EXP.UTC ---
Discharge Plan Disposition Patient Disposition: Home, Self-Care Condition: Good Prescriptions Prescriptions: New gentamicin 0.3 % drops 2 drp ophthalmic (eye) Q4H 7 Days Qty: 5 0RF Rx Instructions: in left eye amoxicillin 875 mg tablet 875 mg PO BID Qty: 20 0RF No Action labetalol 100 mg tablet 100 mg PO BID Qty: 60 2RF famotidine 20 MG tablet 20 mg PO DAILY Referrals Follow up/Referrals: Oren Jnoes MD [Primary Care Provider] - See instructions Activity Restrictions/Add. Instructions Additional Instructions/Restrictions: Use eye drops as prescribed Take oral antibiotic as prescribed Wash hands before and after applying drops to eyes Return if needed Follow up with Eye Doctor if no improvement or any worsening of symptoms Clinical Impressions Clinical Impression: Otitis media Qualifiers: Otitis media type: unspecified Laterality: right Qualified Code(s): H66.91 - Otitis media, unspecified, right ear Instructions Patient Instructions: Middle Ear Infection, Conjunctivitis Discharge ED Provider: Sylvia Metzger [facility] General Stated complaint: possible pink eye, Rt ear pain Mode of Arrival: Ambulatory Source of Information: Patient Limitations: No Limitations Time Seen by Provider: 04/13/23 11:22 Description of Symptoms (Recalled from Triage Doc. by RN): PATIENT C/O POSSIBLE PINK EYE AND RIGHT EAR PAIN SINCE YESTERDAY HEENT Symptoms (Recalled from RN notes): Yes Resp Symptoms (Recalled from RN notes): No Skin Symptoms (Recalled from RN notes): No MS Symptoms (Recalled from RN notes): No Functional Status (Recalled from RN notes): WNL History of Present Illness Provider Complaint: Patient states that she has been having drainage and irritation in her left eye for several days and this morning it was crusty and matted States that she is also having pain in her right ear that has got worse and wanted to get that looked at too Related Data Home Medications Medication Instructions Recorded Confirmed famotidine 20 mg tablet 20 mg PO DAILY Heartburn 07/05/21 11/23/22 Previous Rx's Medication Instructions Recorded labetalol 100 mg tablet 100 mg PO BID #60 tabs 11/23/22 amoxicillin 875 mg tablet 875 mg PO BID #20 tabs 04/13/23 gentamicin 0.3 % eye drops 2 drp ophthalmic (eye) Q4H 7 days 04/13/23 #5 mL Allergies Allergy/AdvReac Type Severity Reaction Status Date / Time No Known Allergies Allergy Verified 11/23/22 13:50 Worker's Comp Is this a Worker's Comp case?: No [facility] Disclaimer: The information contained in this section may have been updated after the patient was seen, as this information can be updated by other users. 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
[2023-04-13 11:34] VITALS: BP 119/76; PULSE 74; RESP 19; TEMP 36.7; O2SAT 98
== END 2023-04-13 11:36 | disposition home or self-care (01) ==
PROVIDERS: Emergency Provider Nurse Practitioner; PCP Internal Medicine Adolescent Medicine
DX: H66.91 Otitis media, unspecified, right ear (principal); I10 Essential (primary) hypertension; K21.9 Gastro-esophageal reflux disease without esophagitis; Q23.1 Congenital insufficiency of aortic valve; F17.290 Nicotine dependence, other tobacco product, uncomplicated
CPT/HCPCS: 99212; 99214; G0463

== ENCOUNTER 2023-12-08 18:13 | Emergency (ER) | payer OTHER, SELFPAY ==
--- NOTE | 2023-12-08 18:32 | XR_ITS ---
PROCEDURE INFORMATION: Exam: XR Left Knee Exam date and time: 12/08/2023 6:29 PM Age: 28 years old Clinical indication: Pain; Knee; Left; Additional info: Pain and swelling TECHNIQUE: Imaging protocol: Radiologic exam of the left knee. Views: 3 views. COMPARISON: No relevant prior studies available. FINDINGS: Bones/joints: Normal. Soft tissues: Normal. IMPRESSION: No acute findings.
[2023-12-08 18:45] VITALS: BP 139/90; PULSE 86; RESP 17; TEMP 36.6; O2SAT 98; BMI 35.0
--- NOTE | 2023-12-08 19:03 | ED_ITS ---
Discharge Plan Disposition Patient Disposition: Home, Self-Care Condition: Good Prescriptions Prescriptions: No Action labetalol 100 mg tablet 100 mg PO BID Qty: 60 2RF famotidine 20 MG tablet 20 mg PO DAILY gentamicin 0.3 % drops 2 drp ophthalmic (eye) Q4H 7 Days Qty: 5 0RF Rx Instructions: in left eye amoxicillin 875 mg tablet 875 mg PO BID Qty: 20 0RF Referrals Follow up/Referrals: Oren Jones MD [Primary Care Provider] - See instructions Clinical Impressions Clinical Impression: Acute knee pain Instructions Patient Instructions: DI for Knee Pain Discharge [facility]Perez [facility] General Stated complaint: Left knee swollen and painful Mode of Arrival: Ambulatory Source of Information: Patient Limitations: No Limitations Time Seen by Provider: 12/08/23 19:03 Description of Symptoms (Recalled from Triage Doc. by RN): PATIENT C/O SWELLING TO LEFT KNEE X 3 MONTHS HEENT Symptoms (Recalled from RN notes): No Resp Symptoms (Recalled from RN notes): No Skin Symptoms (Recalled from RN notes): No MS Symptoms (Recalled from RN notes): Yes Functional Status (Recalled from RN notes): WNL History of Present Illness Provider Complaint: 28 YR OLD FEMALE PRESENTS FOR SWELLING AND PAIN TO LEFT KNEE FOR 3 MONTHS. PT STATES SHE WEARS A BRACE AND SWELLING GOES DOWN BUT WHEN SHE IS AT WORK THE SWELLING RETURNS Related Data Home Medications Medication Instructions Recorded Confirmed famotidine 20 mg tablet 20 mg PO DAILY Heartburn 07/05/21 11/23/22 Previous Rx's Medication Instructions Recorded labetalol 100 mg tablet 100 mg PO BID #60 tabs 11/23/22 amoxicillin 875 mg tablet 875 mg PO BID #20 tabs 04/13/23 gentamicin 0.3 % eye drops 2 drp ophthalmic (eye) Q4H 7 days 04/13/23 #5 mL Allergies Allergy/AdvReac Type Severity Reaction Status Date / Time No Known Allergies Allergy Verified 11/23/22 13:50 Worker's Comp Is this a Worker's Comp case?: No [facility] Disclaimer: The information contained in this section may have been updated after the patient was seen, as this information can be updated by other users. 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 current occupational exposures/hazards: No caffeine: Yes ROS Obtained: Yes All systems reviewed & no additional complaints except as documented Constitutional Constitutional: Reports system reviewed and no additional complaints, except as documented Eyes Eyes: Reports system reviewed and no additional complaints, except as documented ENT Ears, Nose, Mouth, and Throat: Reports system reviewed and no additional complaints, except as documented Cardiovascular Cardiovascular: Reports system reviewed and no additional complaints, except as documented Respiratory Respiratory: Reports system reviewed and no additional complaints, except as documented Musculoskeletal Musculoskeletal: Reports system reviewed and no additional complaints, except as documented, Reports as per HPI, Reports arthralgias and Reports joint swelling Integumentary/Breasts Skin/Breast: Reports system reviewed and no additional complaints, except as documented Neurologic Neurologic: Reports system reviewed and no additional complaints, except as documented Hematologic/Lymphatic Henatologic/Lymphatic: Reports system reviewed and no additional complaints, except as documented Allergic/Immunologic Allergic/Immunologic: Reports system reviewed and no additional complaints, except as documented Physical Exam General General appearance: alert and in no apparent distress Head Head exam: atraumatic Eye Eye exam: Present normal appearance and PERRL ENT ENT exam: Present normal exam Respiratory Respiratory exam: Present normal lung sounds bilaterally Cardiovascular Cardiovascular exam: Present regular rate and normal rhythm Expanded Lower Extremity Exam Left: Leg image: 2 1. TENDER Knee exam: Present normal inspection and tenderness Neurological Exam Neurological exam: Present alert and oriented X3 Skin Skin exam: Present warm and intact Medical Decision Making Medical Records Medical records reviewed: Yes I reviewed the patient's medical records. Rock Inquiry Pt receiving controlled substance: No Rock was queried for this patient: No Vital Signs: 12/08/23 18:45 Temperature 97.8 F Temperature Source Oral Pulse Rate [Left Brachial] 86 Respiratory Rate 17 Blood Pressure [Left Arm] 139/90 Blood Pressure Mean [Left Arm] 106 Blood Pressure Source [Left Arm] Automatic Cuff Blood Pressure Position [Left Arm] Sitting 02 Sat by Pulse Oximetry 98 Oxygen Delivery Method Room Air Lab Data Lab results reviewed: Yes I reviewed the patient's lab results. Orders (Tests/Meds): ORDERS Category Date Time Status XR knee LT 3V Stat Exams 12/08/23 18:32 Completed
[2023-12-08 19:30] VITALS: BP 139/90; PULSE 86; RESP 17; TEMP 36.6; O2SAT 98
== END 2023-12-08 19:35 | disposition home or self-care (01) ==
PROVIDERS: Emergency Provider Nurse Practitioner Family; PCP Internal Medicine Adolescent Medicine
DX: M25.562 Pain in left knee (principal); R22.42 Localized swelling, mass and lump, left lower limb; I35.8 Other nonrheumatic aortic valve disorders; I10 Essential (primary) hypertension; F17.290 Nicotine dependence, other tobacco product, uncomplicated
CPT/HCPCS: 73562; 99212; 99213; G0463

== ENCOUNTER 2024-01-22 08:15 | Outpatient (CLI) | payer OTHER, SELFPAY ==
--- NOTE | 2024-01-22 08:16 | MR_ITS ---
FINAL REPORT TECHNIQUE: Multiplanar MR without contrast CLINICAL HISTORY: Lt Knee Pain FINDINGS: Articular cartilage: No focal defect Marrow signal: Tiny focus of marrow edema in the medial femoral condyle, nonspecific bone contusion is not excluded. Joint fluid: Moderate joint effusion. No joint body. Menisci: Normal morphology without tear Ligaments: Collateral and cruciate ligaments intact. Mild lateral patellar subluxation with mild thinning of the medial patellofemoral ligament. Partial tear of the medial patellofemoral ligament is not excluded. IMPRESSION: No evidence of meniscal tear. Collateral and cruciate ligaments intact. Mild lateral patellar subluxation with questionable partial tear of the medial patellofemoral ligament. Reviewed, Interpreted and Dictated by Renée Ricci MD Transcribed by Laurel Clements Authenticated and . [facility]
== END 2024-01-22 23:59 | disposition home or self-care (01) ==
LOC: RAD 08:16
PROVIDERS: PCP Internal Medicine Adolescent Medicine; Visit Provider Orthopaedic Surgery
DX: M71.22 Synovial cyst of popliteal space [Baker], left knee (principal)
CPT/HCPCS: 73721

== ENCOUNTER 2024-02-07 09:18 | Emergency (ER) | payer OTHER, SELFPAY ==
[2024-02-07 09:30] VITALS: BP 146/85; PULSE 74; RESP 19; TEMP 36.4; O2SAT 98; BMI 29.7
[2024-02-07 09:50] LABS: UTC Strep Screen (Rapid) Negative (Negative)
--- NOTE | 2024-02-07 10:06 | ED_ITS ---
Discharge Plan Disposition Patient Disposition: Home, Self-Care Condition: Good Prescriptions Prescriptions: No Action famotidine 20 MG tablet 20 mg PO DAILY Referrals Follow up/Referrals: Oren Jones MD [Primary Care Provider] - See instructions Activity Restrictions/Add. Instructions Additional Instructions/Restrictions: *Monitor Temp, Over the counter Motrin or Tylenol as directed/as needed Tylenol every 4 hours and Motrin every 6 hours (as long as your family doctor has told you that you can take it) for fever or pain. and straight to ER if unable to lower temp less than 101.0 after medication given *Warm salt water gargles may help to soothe the throat *Throat Lozenges? *Warm fluids like tea with honey may help to soothe the throat? *Sleep elevated *Humidifier/Vaporizer *Your throat swab was sent for culture. Those results are typically sent to your primary care. Be sure to follow up in 2-3 days with your family doctor/primary care physician if no improvement so they can review those result and treat if necessary. If you don?t have a primary care doctor, I recommend you get one but in the mean time, you will have to return to a walk in clinic Follow up IMMEDIATELY for new or worsening symptoms or no Noticeable improvement over the next 48-72 hours. 911 for difficulty breathing or swallowing Clinical Impressions Clinical Impression: Viral upper respiratory infection Instructions Patient Instructions: Sore Throat, DI for Ear Pain-Adult Discharge ED Provider: Sylvia Metzger [facility] General Stated complaint: cough, congestion Mode of Arrival: Ambulatory Source of Information: Patient Limitations: No Limitations Time Seen by Provider: 02/07/24 10:06 Description of Symptoms (Recalled from Triage Doc. by RN): PATIENT C/O SORE THROAT, COUGH AND EAR ACHE THAT STARTED SUNDAY HEENT Symptoms (Recalled from RN notes): Yes Resp Symptoms (Recalled from RN notes): Yes Skin Symptoms (Recalled from RN notes): No MS Symptoms (Recalled from RN notes): No Functional Status (Recalled from RN notes): WNL History of Present Illness Provider Complaint: Patient states that she has been having cough, sore throat, and ear pain since Sunday States today she was bringing her kids in to get checked so she got checked also Related Data Home Medications Medication Instructions Recorded Confirmed famotidine 20 mg tablet 20 mg PO DAILY Heartburn 07/05/21 01/08/24 Allergies Allergy/AdvReac Type Severity Reaction Status Date / Time No Known Allergies Allergy Verified 01/08/24 13:04 Worker's Comp Is this a Worker's Comp case?: No [facility] Disclaimer: The information contained in this section may have been updated after the patient was seen, as this information can be updated by other users. 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 current occupational exposures/hazards: No caffeine: Yes ROS Obtained: Yes All systems reviewed & no additional complaints except as documented and Yes Systems reviewed as appropriate & no additional complaints except as documented Constitutional Constitutional: Reports system reviewed and no additional complaints, except as documented and Reports as per HPI Eyes Eyes: Reports system reviewed and no additional complaints, except as documented and Reports as per HPI ENT Ears, Nose, Mouth, and Throat: Reports system reviewed and no additional complaints, except as documented, Reports as per HPI, Reports otalgia, Reports nasal congestion, Reports nasal discharge and Reports sore throat Cardiovascular Cardiovascular: Reports system reviewed and no additional complaints, except as documented and Reports as per HPI Respiratory Respiratory: Reports system reviewed and no additional complaints, except as documented, Reports as per HPI and Reports cough Gastrointestinal Gastrointestingal: Reports system reviewed and no additional complaints, except as documented and as per HPI Physical Exam General General appearance: alert and in no apparent distress ENT ENT exam: Present mucous membranes moist and TM's normal bilaterally Expanded ENT Exam Nose exam: Absent sinus tenderness Throat exam: Present other (mild pharyngeal erythema noted) Respiratory Respiratory exam: Present normal lung sounds bilaterally; Absent respiratory distress or wheezes Cardiovascular Cardiovascular exam: Present regular rate, normal rhythm and normal heart sounds Neurological Exam Neurological exam: Present alert, oriented X3 and normal gait Medical Decision Making Rock Inquiry Pt receiving controlled substance: No Rock was queried for this patient: No Vital Signs: 02/07/24 09:30 Temperature 97.5 F L Temperature Source Oral Pulse Rate [Right Brachial] 74 Respiratory Rate 19 Blood Pressure [Right Arm] 146/85 H Blood Pressure Mean [Right Arm] 105 Blood Pressure Source [Right Arm] Automatic Cuff Blood Pressure Position [Right Arm] Sitting 02 Sat by Pulse Oximetry 98 Oxygen Delivery Method Room Air Lab Data Lab results reviewed: Yes I reviewed the patient's lab results. Lab Results 02/07/24 09:39: Strep Scn Rapid Clinic Negative Orders (Tests/Meds): ORDERS Category Date Time Status Strep Screen Confirmation Stat Micro 02/07/24 09:39 Received
[2024-02-07 10:10] VITALS: BP 146/85; PULSE 74; RESP 19; TEMP 36.4; O2SAT 98
== END 2024-02-07 10:14 | disposition home or self-care (01) ==
PROVIDERS: Emergency Provider Nurse Practitioner; PCP Internal Medicine Adolescent Medicine
DX: R05.9 Cough, unspecified (principal); J06.9 Acute upper respiratory infection, unspecified; R07.0 Pain in throat; H92.03 Otalgia, bilateral; B34.9 Viral infection, unspecified
CPT/HCPCS: 87880; 99212; 99213; 99214; G0463

== ENCOUNTER 2024-03-18 21:14 | Emergency (ER) | payer OTHER, SELFPAY ==
[2024-03-18 21:16] VITALS: BP 162/100; PULSE 90; RESP 16; TEMP 36.7; O2SAT 98; BMI 30.1
[2024-03-18 21:28] LABS: Microscopic, Urine URINE MICROSCOPIC (MICROSCOPIC)
[2024-03-18 21:31] LABS: Appearance,Urine SL CLOUDY (Clear); Bilirubin,Urine Negative (Negative); Blood, Urine 3+ (Negative); Color,Urine YELLOW (Yellow); Glucose,Urine (UA) Negative (Negative); Ketones,Urine TRACE (Negative); Leukocyte Esterase,Urine 1+ (Negative); Nitrate,Urine POSITIVE (Negative); Protein,Urine 1+ (Negative); Specific Gravity, Urine >= 1.030 (1.005-1.030); Urobilinogen,Urine 0.2 EU/dl (0.2)
[2024-03-18 21:35] LABS: Urine Pregnancy, HCG Qual. Negative (Negative)
[2024-03-18] MEDS: ACETAMINOPHEN 500MG TAB 1000 MG PO (21:36)
[2024-03-18] MEDS: PHENAZOPYRIDINE 200MG TABLET 200 MG PO (21:36)
[2024-03-18] MEDS: KETOROLAC 30MG/ML VIAL 30 MG IM (21:37)
[2024-03-18 21:57] LABS: Bacteria,Urine Trace /lpf; RBC,Urine 20-50 #/hpf (0-3)
--- NOTE | 2024-03-18 22:02 | HMH.EDGENADL ---
Discharge Plan Disposition Patient Disposition: Home, Self-Care Condition: Good Prescriptions Prescriptions: New ondansetron 4 mg tablet,disintegrating 4 mg PO Q8H PRN (Reason: nausea and vomiting) 4 Days Qty: 12 0RF phenazopyridine [Pyridium] 200 mg tablet 200 mg PO Q8H PRN (Reason: pain) Qty: 12 0RF ketorolac 10 mg tablet 10 mg PO Q8H PRN (Reason: pain) Qty: 12 0RF nitrofurantoin monohyd/m-cryst [Macrobid] 100 mg capsule 100 mg PO BID 5 Days Qty: 10 0RF Rx Instructions: must administer with a meal/food Referrals Follow up/Referrals: Oren Jones MD [Primary Care Provider] - See instructions Activity Restrictions/Add. Instructions Additional Instructions/Restrictions: You were evaluated in the emergency department today. 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 You may also take Tylenol every 4-6 hours as needed for pain and spasming. Make sure that you drink plenty of water. Return to the emergency department for new or worsening symptoms. Follow-up with your primary care provider over the next 3 days. Clinical Impressions Clinical Impression: Urinary tract infection Stand Alone Forms Stand Alone Forms: Work/School Release Instructions Patient Instructions: DI for Urinary Tract Infection (UTI) Discharge ED Provider: Angelic Castellon General Adult HPI General Chief complaint: Urogenital-Female Stated complaint: diff urinating Time Seen by Provider: 03/18/24 21:21 Mode of Arrival: Ambulatory Source of Information: Patient Limitations: No Limitations Description of Symptoms (Recalled from ER Triage Doc. by RN): Pt presents to ED for difficulty urinating. Pt states it is irritating when she urinates and she feels like her bladder doesn't empty all the way. Pt states symptoms started a few hours ago. Pt is A&O*4. History of Present Illness HPI narrative: This patient is a 28-year-old female presenting to the emergency department for evaluation with concern for dysuria and urinary frequency that started several hours ago. She states that she feels like her bladder is not emptying all the way. She denies any fevers, chills, nausea, vomiting, abdominal pain, flank pain, or other concerns. No changes in bowel movements. She has otherwise been well. No abnormal vaginal discharge or concern for STI. Related Data Previous Rx's Medication Instructions Recorded ketorolac 10 mg tablet 10 mg PO Q8H PRN pain #12 tabs 03/18/24 nitrofurantoin 100 mg PO BID 5 days #10 caps 03/18/24 monohydrate/macrocrystals 100 mg capsule (Macrobid) ondansetron 4 mg disintegrating 4 mg PO Q8H PRN nausea and 03/18/24 tablet vomiting 4 days #12 tabs phenazopyridine 200 mg tablet 200 mg PO Q8H PRN pain #12 tabs 03/18/24 (Pyridium) Allergies Allergy/AdvReac Type Severity Reaction Status Date / Time No Known Allergies Allergy Verified 02/14/24 10:59 PFSH PFS Disclaimer: The information contained in this section may have been updated after the patient was seen, as this information can be updated by other users. 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 current occupational exposures/hazards: No caffeine: Yes ROS Obtained: Yes All systems reviewed & no additional complaints except as documented Physical Exam General General appearance: alert and in no apparent distress Head Head exam: atraumatic and normocephalic Eye Eye exam: Present normal appearance, PERRL and EOMI ENT ENT exam: Present normal exam, normal oropharynx, mucous membranes moist and normal external ear exam Neck Neck exam: Present normal inspection, full ROM and trachea midline; Absent tenderness Chest Chest inspection: Present normal inspection and symmetric chest wall rise; Absent tenderness Respiratory Respiratory exam: Present normal lung sounds bilaterally; Absent respiratory distress, wheezes, stridor or accessory muscle use Cardiovascular Cardiovascular exam: Present regular rate and normal rhythm Abdominal Exam Abdominal exam: Present soft; Absent distention, tenderness or guarding Extremities Exam Extremities exam: Present normal inspection, full ROM and normal capillary refill; Absent tenderness or edema Back Exam Back exam: Present normal inspection and full ROM; Absent tenderness Neurological Exam Neurological exam: Present alert, oriented X3, CN II-XII intact and normal gait; Absent motor sensory deficit Psychiatric Psychiatric exam: Present normal affect and normal mood Skin Skin exam: Present warm and dry Medical Decision Making Medical Records Medical records reviewed: Yes I reviewed the patient's medical records. Rock Inquiry Pt receiving controlled substance: No Vital Signs: 03/18/24 21:16 Temperature 98.1 F Temperature Source Oral Pulse Rate [Left] 90 Respiratory Rate 16 Blood Pressure [Right Arm] 162/100 H Blood Pressure Mean [Right Arm] 120 02 Sat by Pulse Oximetry 98 Oxygen Delivery Method Room Air Lab Data Lab results reviewed: Yes I reviewed the patient's lab results. Lab Results 03/18/24 21:19: Urine Color Yellow, Urine Appearance Sl cloudy, Urine pH 6.0, Ur Specific [place] >= 1.030, Urine Protein 1+, Urine Glucose (UA) Negative, Urine Ketones Trace, Urine Blood 3+, Urine Nitrate Positive, Urine Bilirubin Negative, Urine Urobilinogen 0.2, Ur Leukocyte Esterase 1+ A, Urine RBC 20-50, Urine WBC 5-10, Ur Squamous Epith Cells 3-5, Urine Bacteria Trace 03/18/24 21:20: Urine HCG, Qual Negative Orders (Tests/Meds): ED MEDICATIONS Discontinued Medications Generic Name Dose Route Start Last Admin Trade Name Taran PRN Reason Stop Dose Admin Acetaminophen 1,000 mg 03/18/24 21:32 03/18/24 21:36 Acetaminophen 500mg Tab PO 03/18/24 21:33 1,000 mg ONCE ONE Administration Ketorolac Tromethamine 30 mg 03/18/24 21:32 03/18/24 21:37 Ketorolac 30mg/Ml Vial IM 03/18/24 21:33 30 mg ONCE ONE Administration Nitrofurantoin Macrocrystals 100 mg 03/18/24 21:42 Nitrofurantoin 100mg Capsule PO 03/18/24 21:43 ONCE ONE Phenazopyridine HCl 200 mg 03/18/24 21:32 03/18/24 21:36 Phenazopyridine 200mg Tablet PO 03/18/24 21:33 200 mg ONCE ONE Administration ORDERS Category Date Time Status UA [Urinalysis and Microscopic] Stat Lab 03/18/24 21:19 Completed Urine , HCG Qual. Stat Lab 03/18/24 21:20 Completed Urine Culture Stat Micro 03/18/24 21:19 Received Medical Decision Narrative: In summary, this patient is a 28-year-old female presenting to the Emergency Department for evaluation of dysuria and urinary frequency. Differential diagnoses considered include but are not limited to cystitis, pyelonephritis, bladder spasm, ureterolithiasis. Ruling out the most morbid conditions drove assessment. On exam, the patient is very well-appearing. She has no flank pain or tenderness, no fevers, and no vomiting. Vitals are reassuring. I feel she likely has simple cystitis based on symptoms and exam. Urinalysis concerning for infection with positive leukocyte esterase, positive nitrates, and bacteria. Given this, we will treat with Macrobid. Urine culture was sent and is pending. Patient was given IM Toradol, oral Tylenol, oral Pyridium for symptomatic improvement. Patient was deemed to be appropriate for discharge home. Strict return precautions were given as well as instructions for close patient follow-up. She was discharged with prescriptions for Macrobid, Toradol, Pyridium, and Zofran. Critical Care Critical Care Time Critical Care Time: No
[2024-03-18 22:03] VITALS: BP 173/97; PULSE 93; RESP 18; TEMP 36.7; O2SAT 97
[2024-03-18] MEDS: NITROFURANTOIN 100MG CAPSULE 100 MG PO (22:07)
== END 2024-03-18 22:10 | disposition home or self-care (01) ==
PROVIDERS: Emergency Provider Emergency Medicine; PCP Internal Medicine Adolescent Medicine
DX: N39.0 Urinary tract infection, site not specified (principal); B96.29 Other Escherichia coli [E. coli] as the cause of diseases classified elsewhere; R30.0 Dysuria
CPT/HCPCS: 81001; 81025; 87086; 87088; 87186; 96372; 99283; J1885

== ENCOUNTER 2024-03-20 15:06 | Emergency (ER) | payer OTHER, SELFPAY ==
[2024-03-20 15:25] VITALS: BP 160/97; PULSE 76; RESP 20; TEMP 36.9; O2SAT 97; BMI 30.2
--- NOTE | 2024-03-20 16:02 | ED_ITS ---
Discharge Plan Disposition Patient Disposition: Home, Self-Care Condition: Good Prescriptions Prescriptions: No Action ondansetron 4 mg tablet,disintegrating 4 mg PO Q8H PRN (Reason: nausea and vomiting) 4 Days Qty: 12 0RF phenazopyridine [Pyridium] 200 mg tablet 200 mg PO Q8H PRN (Reason: pain) Qty: 12 0RF ketorolac 10 mg tablet 10 mg PO Q8H PRN (Reason: pain) Qty: 12 0RF nitrofurantoin monohyd/m-cryst [Macrobid] 100 mg capsule 100 mg PO BID 5 Days Qty: 10 0RF Rx Instructions: must administer with a meal/food Referrals Follow up/Referrals: Oren Jones MD [Primary Care Provider] - See instructions Activity Restrictions/Add. Instructions Additional Instructions/Restrictions: Follow up with [facility]. Baby can't get herpes unless direct /indirect contact with a lesion. Herpes does not pass through breast milk. Clinical Impressions Clinical Impression: Sexually transmitted disease exposure Stand Alone Forms Stand Alone Forms: Work/School Release Instructions Patient Instructions: DI for Genital Herpes, How to Detect and Treat STDs, Facts About Sexually Transmitted Infections Discharge ED Provider: Zunilda Otto [facility] General Stated complaint: STI check Mode of Arrival: Ambulatory Source of Information: Patient Limitations: No Limitations Time Seen by Provider: 03/20/24 15:28 Description of Symptoms (Recalled from Triage Doc. by RN): PATIENT REQUESTING STD TESTING DUE TO POSSIBLE EXPOSURE. PATIENT DENIES SYMPTOMS HEENT Symptoms (Recalled from RN notes): No Resp Symptoms (Recalled from RN notes): No Skin Symptoms (Recalled from RN notes): No MS Symptoms (Recalled from RN notes): No Functional Status (Recalled from RN notes): WNL History of Present Illness Provider Complaint: Pt reports that her partner called and informed her that he has tested positive for herpes. She wishes to be tested for STIs at this time. She denies any signs or symptoms. Related Data Previous Rx's Medication Instructions Recorded ketorolac 10 mg tablet 10 mg PO Q8H PRN pain #12 tabs 03/18/24 nitrofurantoin 100 mg PO BID 5 days #10 caps 03/18/24 monohydrate/macrocrystals 100 mg capsule (Macrobid) ondansetron 4 mg disintegrating 4 mg PO Q8H PRN nausea and 03/18/24 tablet vomiting 4 days #12 tabs phenazopyridine 200 mg tablet 200 mg PO Q8H PRN pain #12 tabs 03/18/24 (Pyridium) Allergies Allergy/AdvReac Type Severity Reaction Status Date / Time No Known Allergies Allergy Verified 02/14/24 10:59 Worker's Comp Is this a Worker's Comp case?: [facility] Disclaimer: The information contained in this section may have been updated after the patient was seen, as this information can be updated by other users. 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 current occupational exposures/hazards: No caffeine: Yes ROS Obtained: Yes All systems reviewed & no additional complaints except as documented Constitutional Constitutional: Reports system reviewed and no additional complaints, except as documented Eyes Eyes: Reports system reviewed and no additional complaints, except as documented ENT Ears, Nose, Mouth, and Throat: Reports system reviewed and no additional complaints, except as documented Cardiovascular Cardiovascular: Reports system reviewed and no additional complaints, except as documented Respiratory Respiratory: Reports system reviewed and no additional complaints, except as documented Gastrointestinal Gastrointestingal: Reports system reviewed and no additional complaints, except as documented Genitourinary Female Genitourinary: Reports system reviewed and no additional complaints, except as documented Musculoskeletal Musculoskeletal: Reports system reviewed and no additional complaints, except as documented Integumentary/Breasts Skin/Breast: Reports system reviewed and no additional complaints, except as documented Neurologic Neurologic: Reports system reviewed and no additional complaints, except as documented Endocrine Endocrine: Reports system reviewed and no additional complaints, except as documented Hematologic/Lymphatic Henatologic/Lymphatic: Reports system reviewed and no additional complaints, except as documented Allergic/Immunologic Allergic/Immunologic: Reports system reviewed and no additional complaints, except as documented Physical Exam General General appearance: alert Comment: pt very upset and crying Head Head exam: atraumatic and normocephalic Eye Eye exam: Present normal appearance ENT ENT exam: Present normal exam and normal oropharynx Neck Neck exam: Present normal inspection Chest Chest inspection: Present normal inspection and symmetric chest wall rise Respiratory Respiratory exam: Present normal lung sounds bilaterally Cardiovascular Cardiovascular exam: Present regular rate and normal rhythm Abdominal Exam Abdominal exam: Present soft and normal bowel sounds Extremities Exam Extremities exam: Present normal inspection Back Exam Back exam: Present normal inspection Neurological Exam Neurological exam: Present alert and oriented X3 Psychiatric Psychiatric exam: Present normal affect and normal mood Skin Skin exam: Present warm, dry and intact Lymphatic Lymphatic Findings: no adenopathy Medical Decision Making Rock Inquiry Pt receiving controlled substance: No Rock was queried for this patient: No Vital Signs: 03/20/24 15:25 Temperature 98.4 F Temperature Source Oral Pulse Rate [Left Brachial] 76 Respiratory Rate 20 Blood Pressure [Left Arm] 160/97 H Blood Pressure Mean [Left Arm] 118 Blood Pressure Source [Left Arm] Automatic Cuff Blood Pressure Position [Left Arm] Sitting 02 Sat by Pulse Oximetry 97 Oxygen Delivery Method Room Air Orders (Tests/Meds): ORDERS Category Date Time Status UA [Urinalysis and Microscopic] Stat Lab 03/20/24 16:01 Ordered
[2024-03-20 16:10] VITALS: BP 160/97; PULSE 76; RESP 20; TEMP 36.9; O2SAT 97
[2024-03-20 16:24] LABS: Microscopic, Urine URINE MICROSCOPIC (MICROSCOPIC)
[2024-03-20 16:31] LABS: Appearance,Urine CLEAR (Clear); Bilirubin,Urine Negative (Negative); Blood, Urine Negative (Negative); Color,Urine ORANGE (Yellow); Glucose,Urine (UA) TRACE (Negative); Ketones,Urine Negative (Negative); Leukocyte Esterase,Urine Negative (Negative); Nitrate,Urine POSITIVE (Negative); Protein,Urine TRACE (Negative); Specific Gravity, Urine 1.025 (1.005-1.030)
[2024-03-20 16:43] LABS: Bacteria,Urine Trace /lpf; WBC,Urine Occasional #/hpf (0-3)
[2024-03-23 06:53] LABS: Miscellaneous Test SCANNED IMAGE
[2024-03-24 07:08] LABS: Neisseria gonorrhoeae, NAA Negative (Negative)
--- NOTE | 2024-03-24 12:11 | PC.NURSE ---
PATIENT NOTIFIED OF NEGATIVE HSV RESULT
== END 2024-03-20 16:14 | disposition home or self-care (01) ==
PROVIDERS: Emergency Provider Nurse Practitioner Family; PCP Internal Medicine Adolescent Medicine
DX: Z20.2 Contact with and (suspected) exposure to infections with a predominantly sexual mode of transmission (principal)
CPT/HCPCS: 81001; 87491; 87591; 99212; G0463

== ENCOUNTER 2024-04-02 20:01 | Emergency (ER) | payer OTHER, SELFPAY ==
[2024-04-02 20:01] VITALS: BP 156/95; PULSE 71; RESP 17; TEMP 37.3; O2SAT 99; BMI 29.9
--- NOTE | 2024-04-02 20:06 | ECG_ITS ---
APPROVED REPORT Exam: Resting ECG HR:64 bpm ECG Measurements Heart Rate 64 AXES AK 141 P 30 QRSd 96 QRS 58 QT 430 T 11 QTc 439 Conclusion SINUS RHYTHM Electronically signed by : BOBBI DOSS, 04/02/2024 22:00:33
--- NOTE | 2024-04-02 20:13 | ED_ITS ---
Discharge Plan Disposition Patient Disposition: Home, Self-Care Condition: Good Prescriptions Prescriptions: No Action No Known Home Medications Referrals Follow up/Referrals: Oren Jones MD [Primary Care Provider] - See instructions Activity Restrictions/Add. 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 Please call make an appointment to follow-up with cardiology in the a.m. however start your blood pressure medication as written in the a.m. as well. Return to the ER for any worsening signs or symptoms as needed. Clinical Impressions Clinical Impression: Palpitation, Lesion of liver Chest pain Qualifiers: Chest pain type: unspecified Qualified Code(s): R07.9 - Chest pain, unspecified Instructions Patient Instructions: DI for Chest Pain Discharge ED Provider: Andre Dior General Adult HPI <LIANNA Newsome - Last Filed: 04/02/24 22:26> General Chief complaint: Chest Pain Stated complaint: anixety,cp Time Seen by Provider: 04/02/24 20:13 History of Present Illness HPI narrative: Patient presents for evaluation of intermittent chest pain. Patient states that it began yesterday intermittently however went away after about 30 minutes. Today it is been intermittent all day. There is no aggravating or relieving factors. Patient currently at the time of my exam has a score of 0 out of 10. She denies fever chills hemoptysis hematochezia melena nausea vomiting diarrhea then or now. Related Data Home Medications Medication Instructions Recorded Confirmed No Known Home Medications 03/31/24 03/31/24 Allergies Allergy/AdvReac Type Severity Reaction Status Date / Time No Known Allergies Allergy Verified 03/31/24 11:18 PFSH <LIANNA Newsome - Last Filed: 04/02/24 22:26> [facility] Disclaimer: The information contained in this section may have been updated after the patient was seen, as this information can be updated by other users. 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 current occupational exposures/hazards: No caffeine: Yes <LIANNA Newsome - Last Filed: 04/02/24 22:26> ROS Obtained: Yes Systems reviewed as appropriate & no additional complaints except as documented Physical Exam <LIANNA Newsome - Last Filed: 04/02/24 22:26> General General appearance: alert and in no apparent distress Chest Chest inspection: Present normal inspection and symmetric chest wall rise; Absent tenderness Respiratory Respiratory exam: Present normal lung sounds bilaterally; Absent respiratory distress, wheezes or accessory muscle use Cardiovascular Cardiovascular exam: Present regular rate, normal rhythm and normal heart sounds Abdominal Exam Abdominal exam: Present soft and normal bowel sounds; Absent tenderness Neurological Exam Neurological exam: Present alert and oriented X3 Medical Decision Making <LIANNA Newsome - Last Filed: 04/02/24 22:26> Medical Records Medical records reviewed: Yes I reviewed the patient's medical records. Rock Inquiry Pt receiving controlled substance: No Vital Signs: 04/02/24 20:01 04/02/24 20:31 04/02/24 20:45 Temperature 99.1 F Temperature Source Oral Pulse Rate 66 65 Pulse Rate [Right] 71 Respiratory Rate 17 14 19 Blood Pressure 172/96 H 156/94 H Blood Pressure [Right Arm] 156/95 H Blood Pressure Mean 121 115 Blood Pressure Mean [Right Arm] 115 Blood Pressure Source Blood Pressure Source [Right Arm] Automatic Cuff Blood Pressure Position Blood Pressure Position [Right Arm] Sitting 02 Sat by Pulse Oximetry 99 99 99 Oxygen Delivery Method Room Air Room Air Room Air 04/02/24 21:00 04/02/24 22:27 Temperature 98.2 F Temperature Source Oral Pulse Rate 70 82 Pulse Rate [Right] Respiratory Rate 20 16 Blood Pressure 161/99 H 163/100 H Blood Pressure [Right Arm] Blood Pressure Mean 119 Blood Pressure Mean [Right Arm] Blood Pressure Source Automatic Cuff Blood Pressure Source [Right Arm] Blood Pressure Position Sitting Blood Pressure Position [Right Arm] 02 Sat by Pulse Oximetry 99 Oxygen Delivery Method Room Air Room Air Lab Data Lab results reviewed: Yes I reviewed the patient's lab results. Lab Results 04/02/24 20:15: WBC 10.0, RBC 4.12 L, Hgb 12.9, Hct 39.7, MCV 96.5, MCH 31.3 H, MCHC 32.4, RDW 13.7, Plt Count 272, MPV 8.9, Neut % (Auto) 62.8, Lymph % (Auto) 29.7, [place] % (Auto) 5.0, Eos % (Auto) 1.6, Baso % (Auto) 0.9, Neut # (Auto) 6.3, Lymph # (Auto) 3.0, [place] # (Auto) 0.5, Eos # (Auto) 0.2, Baso # (Auto) 0.1, Sodium 138, Potassium 3.5, Chloride 108 H, Carbon Dioxide 26, Anion Gap 7.5, BUN 12, Creatinine 0.80, Estimated Creat Clear 151, Estimated GFR 85, Est GFR ( Amer) 103, Glucose 90, Calcium 9.2, Magnesium 1.9, Total Bilirubin 0.5, AST 32, ALT 19, Alkaline Phosphatase 93, Troponin I < 0.01, Total Protein 7.2, Albumin 4.2, Globulin 3.0, Albumin/Globulin Ratio 1.4, TSH 0.85 04/02/24 20:15: TSH 0.87, Free T4 Index 2.1 L, Thyroxine (T4) 6.1, T3 Uptake 35, Serum HCG, Qual Negative, Urine Color Yellow, Urine Appearance Clear, Urine pH 6.0, Ur Specific [place] 1.010, Urine Protein Negative, Urine Glucose (UA) Negative, Urine Ketones Negative, Urine Blood Negative, Urine Nitrate Negative, Urine Bilirubin Negative, Urine Urobilinogen 0.2, Ur Leukocyte Esterase Negative, Urine RBC None, Urine WBC None, Ur Squamous Epith Cells Occasional, Urine Bacteria None 04/02/24 20:19: SARS-CoV-2 (PCR) Not detected, Influenza A Untype (PCR) Not detected, Influenza Type B (PCR) Not detected 04/02/24 20:15 04/02/24 20:15 Orders (Tests/Meds): ED MEDICATIONS Discontinued Medications Generic Name Dose Route Start Last Admin Trade Name Taran PRN Reason Stop Dose Admin Acetaminophen 1,000 mg 04/02/24 20:38 04/02/24 20:54 Acetaminophen 1,000mg/100ml Vial IV 04/02/24 20:39 1,000 mg ONCE ONE Administration Belladonna Alkaloids 60 ml 04/02/24 20:38 04/02/24 20:53 Belladonna Alkaloids 60 Ml Ml PO 04/02/24 20:39 60 ml ONCE ONE Administration Lactated Ringer's 1,000 mls @ 999 mls/hr 04/02/24 20:38 04/02/24 20:53 Lactated Ringer's 1000 Ml Bag IV 04/02/24 21:38 999 mls/hr .Q1H1M ONE Administration Iopamidol 100 ml 04/02/24 21:21 04/02/24 21:21 Iopamidol-370 (76%);100ml Bottle IV 04/02/24 21:22 100 ml ONCE ONE Administration Ketorolac Tromethamine 15 mg 04/02/24 20:38 04/02/24 20:53 Ketorolac 30mg/Ml Vial IV 04/02/24 20:39 15 mg ONCE ONE Administration Sodium Chloride 50 ml 04/02/24 21:21 04/02/24 21:22 0.9 % Sodium Chloride 50 Ml Vial IV 04/02/24 21:22 50 ml ONCE ONE Administration Sodium Chloride 10 ml 04/02/24 21:21 04/02/24 21:22 Sodium Chloride 0.9% 10ml Syr (Rad Only) IV 04/02/24 21:22 10 ml ONCE ONE Administration ORDERS Category Date Time Status CT angio chest - dissection Stat Cat Scan 04/02/24 20:58 Completed Chest XR -- portable [XR chest portable] Stat Exams 04/02/24 20:14 Completed CBC w/Auto Diff [Complete Blood Count Auto Diff] Stat Lab 04/02/24 20:15 Completed CMP [Comprehensive Metabolic Panel] Stat Lab 04/02/24 20:15 Completed HCG Qualitative, Serum Stat Lab 04/02/24 20:15 Completed Magnesium Stat Lab 04/02/24 20:15 Completed Rapid PCR Covid and Flu A/B Stat Lab 04/02/24 20:19 Completed TSH [Thyroid Stimulating Hormone] Stat Lab 04/02/24 20:15 Completed Thyroid Panel Stat Lab 04/02/24 20:15 Completed Trop I [Troponin I] Stat Lab 04/02/24 20:15 Completed UA [Urinalysis and Microscopic] Stat Lab 04/02/24 20:15 Completed HEART Score History (anamnesis): Slightly suspicious Age: <45 years Risk factors: 3 or more risk factors Medical Decision Narrative: In summary patient is a 28-year-old female who presents to the emergency department for evaluation of chest pain. Patient is hemodynamically stable upon arrival, afebrile. Physical exam is unremarkable and nonfocal including normal breath sounds no chest pain on palpitation normal heart sounds.. Differential diagnosis includes ACS versus GERD versus esophagitis versus ulcer disease etc. Initial workup will be conducted with hematologic labs twelve-lead EKG urinalysis. l. Initial interventions include crystalloid bolus Toradol Tylenol GI cocktail. 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 Concurs with no acute processes.. Upon repeat evaluation patient still has a high diastolic blood pressure but is essentially asymptomatic from a chest pain standpoint. Given this patient is referred back to her PCP for follow-up of the CT of the chest findings and the known findings in the abdomen and referred back to cardiology for blood pressure management but however I have recommended the patient to reinitiate her labetalol that she already has on hand. Patient verbalized understanding and agreement <Andre Dior MD - Last Filed: 04/02/24 23:01> Vital Signs: 04/02/24 20:01 04/02/24 20:31 04/02/24 20:45 Temperature 99.1 F Temperature Source Oral Pulse Rate 66 65 Pulse Rate [Right] 71 Respiratory Rate 17 14 19 Blood Pressure 172/96 H 156/94 H Blood Pressure [Right Arm] 156/95 H Blood Pressure Mean 121 115 Blood Pressure Mean [Right Arm] 115 Blood Pressure Source Blood Pressure Source [Right Arm] Automatic Cuff Blood Pressure Position Blood Pressure Position [Right Arm] Sitting 02 Sat by Pulse Oximetry 99 99 99 Oxygen Delivery Method Room Air Room Air Room Air 04/02/24 21:00 04/02/24 22:27 Temperature 98.2 F Temperature Source Oral Pulse Rate 70 82 Pulse Rate [Right] Respiratory Rate 20 16 Blood Pressure 161/99 H 163/100 H Blood Pressure [Right Arm] Blood Pressure Mean 119 Blood Pressure Mean [Right Arm] Blood Pressure Source Automatic Cuff Blood Pressure Source [Right Arm] Blood Pressure Position Sitting Blood Pressure Position [Right Arm] 02 Sat by Pulse Oximetry 99 Oxygen Delivery Method Room Air Room Air Lab Data Lab Results 04/02/24 20:15: WBC 10.0, RBC 4.12 L, Hgb 12.9, Hct 39.7, MCV 96.5, MCH 31.3 H, MCHC 32.4, RDW 13.7, Plt Count 272, MPV 8.9, Neut % (Auto) 62.8, Lymph % (Auto) 29.7, [place] % (Auto) 5.0, Eos % (Auto) 1.6, Baso % (Auto) 0.9, Neut # (Auto) 6.3, Lymph # (Auto) 3.0, [place] # (Auto) 0.5, Eos # (Auto) 0.2, Baso # (Auto) 0.1, Sodium 138, Potassium 3.5, Chloride 108 H, Carbon Dioxide 26, Anion Gap 7.5, BUN 12, Creatinine 0.80, Estimated Creat Clear 151, Estimated GFR 85, Est GFR ( Amer) 103, Glucose 90, Calcium 9.2, Magnesium 1.9, Total Bilirubin 0.5, AST 32, ALT 19, Alkaline Phosphatase 93, Troponin I < 0.01, Total Protein 7.2, Albumin 4.2, Globulin 3.0, Albumin/Globulin Ratio 1.4, TSH 0.85 04/02/24 20:15: TSH 0.87, Free T4 Index 2.1 L, Thyroxine (T4) 6.1, T3 Uptake 35, Serum HCG, Qual Negative, Urine Color Yellow, Urine Appearance Clear, Urine pH 6.0, Ur Specific [place] 1.010, Urine Protein Negative, Urine Glucose (UA) Negative, Urine Ketones Negative, Urine Blood Negative, Urine Nitrate Negative, Urine Bilirubin Negative, Urine Urobilinogen 0.2, Ur Leukocyte Esterase Negative, Urine RBC None, Urine WBC None, Ur Squamous Epith Cells Occasional, Urine Bacteria None 04/02/24 20:19: SARS-CoV-2 (PCR) Not detected, Influenza A Untype (PCR) Not detected, Influenza Type B (PCR) Not detected Orders (Tests/Meds): ED MEDICATIONS Discontinued Medications Generic Name Dose Route Start Last Admin Trade Name Taran PRN Reason Stop Dose Admin Acetaminophen 1,000 mg 04/02/24 20:38 04/02/24 20:54 Acetaminophen 1,000mg/100ml Vial IV 04/02/24 20:39 1,000 mg ONCE ONE Administration Belladonna Alkaloids 60 ml 04/02/24 20:38 04/02/24 20:53 Belladonna Alkaloids 60 Ml Ml PO 04/02/24 20:39 60 ml ONCE ONE Administration Lactated Ringer's 1,000 mls @ 999 mls/hr 04/02/24 20:38 04/02/24 20:53 Lactated Ringer's 1000 Ml Bag IV 04/02/24 21:38 999 mls/hr .Q1H1M ONE Administration Iopamidol 100 ml 04/02/24 21:21 04/02/24 21:21 Iopamidol-370 (76%);100ml Bottle IV 04/02/24 21:22 100 ml ONCE ONE Administration Ketorolac Tromethamine 15 mg 04/02/24 20:38 04/02/24 20:53 Ketorolac 30mg/Ml Vial IV 04/02/24 20:39 15 mg ONCE ONE Administration Sodium Chloride 50 ml 04/02/24 21:21 04/02/24 21:22 0.9 % Sodium Chloride 50 Ml Vial IV 04/02/24 21:22 50 ml ONCE ONE Administration Sodium Chloride 10 ml 04/02/24 21:21 04/02/24 21:22 Sodium Chloride 0.9% 10ml Syr (Rad Only) IV 04/02/24 21:22 10 ml ONCE ONE Administration ORDERS Category Date Time Status CT angio chest - dissection Stat Cat Scan 04/02/24 20:58 Completed Chest XR -- portable [XR chest portable] Stat Exams 04/02/24 20:14 Completed CBC w/Auto Diff [Complete Blood Count Auto Diff] Stat Lab 04/02/24 20:15 Completed CMP [Comprehensive Metabolic Panel] Stat Lab 04/02/24 20:15 Completed HCG Qualitative, Serum Stat Lab 04/02/24 20:15 Completed Magnesium Stat Lab 04/02/24 20:15 Completed Rapid PCR Covid and Flu A/B Stat Lab 04/02/24 20:19 Completed TSH [Thyroid Stimulating Hormone] Stat Lab 04/02/24 20:15 Completed Thyroid Panel Stat Lab 04/02/24 20:15 Completed Trop I [Troponin I] Stat Lab 04/02/24 20:15 Completed UA [Urinalysis and Microscopic] Stat Lab 04/02/24 20:15 Completed Medical Decision Narrative: In summary patient is a 28-year-old female who presents to the emergency department for evaluation of chest pain. Patient is hemodynamically stable upon arrival, afebrile. Physical exam is unremarkable and nonfocal including normal breath sounds no chest pain on palpitation normal heart sounds.. Differential diagnosis includes ACS versus GERD versus esophagitis versus ulcer disease etc. Initial workup will be conducted with hematologic labs twelve-lead EKG urinalysis. l. Initial interventions include crystalloid bolus Toradol Tylenol GI cocktail. 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 Concurs with no acute processes.. Upon repeat evaluation patient still has a high diastolic blood pressure but is essentially asymptomatic from a chest pain standpoint. Given this patient is referred back to her PCP for follow-up of the CT of the chest findings and the known findings in the abdomen and referred back to cardiology for blood pressure management but however I have recommended the patient to reinitiate her labetalol that she already has on hand. Patient verbalized understanding and agreement I was consulted by the ANALI, and we discussed the complexity of the problems being addressed. I approved the treatment and management plan for this patient?s care in the Emergency Department, thus performing a substantive portion of the medical decision making. Andre Dior MD Critical Care <LIANNA Newsome - Last Filed: 04/02/24 22:26> Critical Care Time Critical Care Time: No
--- NOTE | 2024-04-02 20:14 | XR_ITS ---
PROCEDURE INFORMATION: Exam: XR Chest Exam date and time: 04/02/2024 8:50 PM Age: 28 years old Clinical indication: Pain; Chest pressure; Additional info: Chest pain TECHNIQUE: Imaging protocol: Radiologic exam of the chest. Views: 1 view. COMPARISON: MR ABDOMEN WO/W CON 09/07/2021 9:52 AM FINDINGS: Lungs: Unremarkable. No consolidation. Pleural spaces: Unremarkable. No pleural effusion. No pneumothorax. Heart/Mediastinum: Unremarkable. No cardiomegaly. Bones/joints: Unremarkable. IMPRESSION: No acute findings.
[2024-04-02 20:31] VITALS: BP 172/96; PULSE 66; RESP 14; O2SAT 99
[2024-04-02 20:35] LABS: Basophils # 0.1 K/mm3 (0-0.2); Basophils % 0.9 % (0.1-2.0); Chloride 108 mmol/L (98-107); Eosinophils # 0.2 K/mm3 (0.0-0.4); Eosinophils % 1.6 % (0.1-12.0); Hematocrit 39.7 % (37.0-47.0); Hemoglobin 12.9 g/dL (12.2-16.2); Lymphocytes % 29.7 % (10-50); Mean Corpuscular HGB Conc 32.4 g/dL (31.8-35.4); Mean Corpuscular Hemoglobin 31.3 pg (27.0-31.2); Mean Corpuscular Volume 96.5 fl (81-99); Mean Platelet Volume 8.9 fl (7.4-10.4); Monocytes # 0.5 K/mm3 (0.1-1.0); Neutrophils # 6.3 K/mm3 (1.8-7.8); Neutrophils % 62.8 % (37.0-80.0); Platelet Count 272 K/mm3 (142-424); Potassium 3.5 mmoL/L (3.5-5.1); Red Blood Count 4.12 M/mm3 (4.20-5.40); Red Cell Distribution Width 13.7 % (11.5-17.5); Sodium 138 mmol/L (136-145)
[2024-04-02 20:37] LABS: Alanine Aminotransferase 19 U/L (12-78); Aspartate Amino Transferase 32 U/L (14-36); Blood Urea Nitrogen 12 mg/dl (7-17); Creatinine Clearance Estimated 151 mL/min (50-200); Estimated Glomerular Filt Rate 85 ml/min (>60); GFR (African American) 103 ML/MIN (>60)
[2024-04-02 20:37] LABS: Coronavirus 19, PCR Not Detected (NotDetected); Influenza A, PCR Not Detected (NotDetected); Influenza B, PCR Not Detected (NotDetected)
[2024-04-02 20:38] LABS: Albumin Level 4.2 g/dl (3.5-5.0); Albumin/Globulin Ratio 1.4 (1.1-1.8); Alkaline Phosphatase 93 U/L (38-126); Anion Gap 7.5 mEq/L (5-15); Bilirubin,Total 0.5 mg/dl (0.2-1.3); Calcium 9.2 mg/dl (8.4-10.2); Carbon Dioxide 26 mmol/L (22.0-30.0); Glucose 90 mg/dl (74-100); Magnesium 1.9 mg/dl (1.6-2.3); Total Protein,Serum 7.2 g/dl (6.3-8.2)
[2024-04-02 20:40] LABS: HCG Qualitative, Serum Negative (Negative)
[2024-04-02 20:45] VITALS: BP 156/94; PULSE 65; RESP 19; O2SAT 99
[2024-04-02] MEDS: KETOROLAC 30MG/ML VIAL 15 MG IV (20:53)
[2024-04-02] MEDS: BELLADONNA ALKALOIDS 60 ML ML PO (20:53)
[2024-04-02] MEDS: LACTATED RINGERS 1000ML 1,000 ML 999 ML IV (20:53)
[2024-04-02] MEDS: ACETAMINOPHEN 1,000MG/100ML VIAL 1000 MG IV (20:54)
[2024-04-02 20:55] LABS: Free Thyroxine Index 2.1 ug/dL (5.93-13.13); T4 (Thyroxine) 6.1 ug/dl (5.53-11.0); Triiodothryronine (T3) Uptake 35 % (23.5-40.5)
--- NOTE | 2024-04-02 20:58 | CT_ITS ---
PROCEDURE INFORMATION: Exam: CTA Chest With Contrast Exam date and time: 04/02/2024 9:19 PM Age: 28 years old Clinical indication: Pain; Chest pressure; Additional info: Chest pain, bicuspid aortic valve TECHNIQUE: Imaging protocol: Computed tomographic angiography of the chest with contrast. Exam focused on the arteries. 3D rendering (Not supervised by radiologist): MIP and/or 3D reconstructed images were created by the technologist. Radiation optimization: All CT scans at this facility use at least one of these dose optimization techniques: automated exposure control; mA and/or kV adjustment per patient size (includes targeted exams where dose is matched to clinical indication); or iterative reconstruction. Contrast material: ISOVUE; Contrast volume: 100 ml; Contrast route: INTRAVENOUS (IV); COMPARISON: CR XR CHEST PORTABLE 04/02/2024 8:[address] abdomen 08/15/2021 and MR 09/07/2021 FINDINGS: Pulmonary arteries: Evaluation of the segmental pulmonary artery branches is limited by excessive motion artifact and cannot be evaluated for subtle acute emboli. Central pulmonary arteries are free of emboli and there are grossly no large occlusive peripheral emboli. Aorta: Unremarkable. No aortic aneurysm. No aortic dissection. Lungs: Unremarkable. No consolidation. No masses. Pleural spaces: Unremarkable. No pneumothorax. No pleural effusion. Heart: Unremarkable. No cardiomegaly. No pericardial effusion. Lymph nodes: Unremarkable. No enlarged lymph nodes. Liver: A 6.0 x 4.2 x 5.2 cm mass again noted in the left upper quadrant adjacent to the posterolateral segment of the left lobe of the liver and anterior to the spleen centered on axial image 62 and coronal image 50. Associated central hypodense component that may reflect a central scar redemonstrated. This lesion previously measured 5.0 x 4.5 x 4.6 cm. A 11 mm round enhancing lesion in the medial right lobe of the liver on axial image 61 of series 5 and 7 mm enhancing lesion in the posterior left lobe of liver on image 70 not seen on the previous CT or MRI of 09/07/2021. A 7 mm enhancing lesion in the posteroinferior right lobe of liver on image 79 is visible in the prior MR. Bones/joints: Unremarkable. No acute fracture. Soft tissues: Unremarkable. IMPRESSION: 1. No evidence of PE with above limitations. 2. Incidental left upper quadrant mass redemonstrated with mild interval increase in size since CT of 08/15/2021. 3. Interval development of 2 enhancing liver lesions in the dome of the liver and the left lobe which are indeterminate. Stable right lobe enhancing lesion. 4. Consider nonemergent MRI of the abdomen with and without contrast for further assessment.
[2024-04-02 20:59] LABS: Troponin I < 0.01 ng/ml (0.00-0.034)
[2024-04-02 21:00] VITALS: BP 161/99; PULSE 70; RESP 20; O2SAT 99
[2024-04-02 21:09] LABS: Thyroid Stimulating Hormone 0.87 uIU/mL (0.465-4.68)
[2024-04-02 21:10] LABS: Thyroid Stimulating Hormone 0.85 uIU/mL (0.465-4.68)
[2024-04-02] MEDS: IOPAMIDOL-370 (76%);100ML BOTTLE 100 ML IV (21:21)
[2024-04-02] MEDS: SODIUM CHLORIDE 0.9% 10ML SYR (RAD ONLY) 10 ML IV (21:22)
[2024-04-02] MEDS: 0.9 % SODIUM CHLORIDE 50 ML VIAL IV (21:22)
[2024-04-02 21:33] LABS: Microscopic, Urine URINE MICROSCOPIC (MICROSCOPIC)
[2024-04-02 21:35] LABS: Appearance,Urine CLEAR (Clear); Bilirubin,Urine Negative (Negative); Blood, Urine Negative (Negative); Color,Urine YELLOW (Yellow); Glucose,Urine (UA) Negative (Negative); Ketones,Urine Negative (Negative); Leukocyte Esterase,Urine Negative (Negative); Nitrate,Urine Negative (Negative); Protein,Urine Negative (Negative); Urobilinogen,Urine 0.2 EU/dl (0.2)
[2024-04-02 22:00] LABS: Squamous Epithelial Cell,Urine Occasional #/hpf (0-5)
[2024-04-02 22:27] VITALS: BP 163/100; PULSE 82; RESP 16; TEMP 36.8; O2SAT 99
== END 2024-04-02 22:28 | disposition home or self-care (01) ==
PROVIDERS: Physician Assistant; Emergency Provider Emergency Medicine; PCP Internal Medicine Adolescent Medicine
DX: R07.89 Other chest pain (principal); R00.2 Palpitations; I10 Essential (primary) hypertension; F17.290 Nicotine dependence, other tobacco product, uncomplicated; K76.9 Liver disease, unspecified
CPT/HCPCS: 71045; 71275; 80053; 81001; 83735; 84436; 84443; 84479; 84484; 84703; 85025; 87636; 93005; 96361; 96374; 96375; 99285; J0131; J1885; J7120; Q9967

== ENCOUNTER 2024-08-11 11:04 | Emergency (ER) | payer OTHER, SELFPAY ==
[2024-08-11 11:54] VITALS: BP 134/87; PULSE 80; RESP 18; TEMP 36.6; O2SAT 100; BMI 31.6
--- NOTE | 2024-08-11 12:26 | EXP.UTC ---
Discharge Plan Disposition Patient Disposition: Home, Self-Care Condition: Good Prescriptions Prescriptions: New amoxicillin-pot clavulanate 875-125 mg Tablet 1 tab PO Q12H Qty: 20 0RF fluticasone propionate [Flonase Allergy Relief] 50 mcg/actuation spray,suspension 2 spray intranasal DAILY Qty: 16 0RF Rx Instructions: administer into each nostril benzonatate 100 mg capsule 100 mg PO TID PRN (Reason: cough) Qty: 30 0RF No Action (DME) blood pressure monitor [Blood Pressure Kit] Kit See Rx Instructions .Route Qty: 1 0RF Rx Instructions: As directed Referrals Follow up/Referrals: Oren Jones MD [Primary Care Provider] - See instructions Activity Restrictions/Add. Instructions Additional Instructions/Restrictions: *Monitor Temp, Over the counter Motrin or Tylenol as directed/as needed Tylenol every 4 hours and Motrin every 6 hours (as long as your family doctor has told you that you can take it) for fever or pain. and straight to ER if unable to lower temp less than 101.0 after medication given *Warm salt water gargles may help to soothe the throat *Throat Lozenges? *Warm fluids like tea with honey may help to soothe the throat? *Sleep elevated *Humidifier/Vaporizer *Flonase 2 sprays in each nostril daily but be aware that it may take 2-3 days before you notice improvement Follow up IMMEDIATELY for new or worsening symptoms or no Noticeable improvement over the next 48-72 hours. 911 for difficulty breathing or swallowing Clinical Impressions Clinical Impression: Sinusitis Instructions Patient Instructions: DI for Sinusitis, Sinusitis Print Language Print Language: Central African Discharge ED Provider: Sylvia Metzger [facility] [place] HPI General Stated complaint: cough, congestion Mode of Arrival: Ambulatory Source of Information: Patient Time Seen by Provider: 08/11/24 12:27 Description of Symptoms (Recalled from Triage Doc. by RN): COLD S/S, RUNNY NOSE, CONGESTION HEENT Symptoms (Recalled from RN notes): No Resp Symptoms (Recalled from RN notes): Yes Skin Symptoms (Recalled from RN notes): No MS Symptoms (Recalled from RN notes): No Functional Status (Recalled from RN notes): WNL History of Present Illness Provider Complaint: Patient states that she has been having sinus pain and pressure for over a week wasnt sure if she had a cold or sinus infection so she came in to get checked Related Data Previous Rx's ?Medication ?Instructions ?Recorded blood pressure monitor (Blood #1 ea 04/14/24 Pressure Kit) amoxicillin 875 mg-potassium 1 tab PO Q12H #20 tabs 08/11/24 clavulanate 125 mg tablet benzonatate 100 mg capsule 100 mg PO TID PRN cough #30 caps 08/11/24 fluticasone propionate 50 2 spray intranasal DAILY #16 grams 08/11/24 mcg/actuation nasal spray,suspension (Flonase Allergy Relief) Allergies Allergy/AdvReac Type Severity Reaction Status Date / Time No Known Allergies Allergy Verified 06/16/24 13:29 Worker's Comp Is this a Worker's Comp case?: No [facility] Disclaimer: The information contained in this section may have been updated after the patient was seen, as this information can be updated by other users. 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 current occupational exposures/hazards: No caffeine: Yes ROS Obtained: Yes All systems reviewed & no additional complaints except as documented and Yes Systems reviewed as appropriate & no additional complaints except as documented Constitutional Constitutional: Reports system reviewed and no additional complaints, except as documented, Reports as per HPI, Reports body ache and Reports fever(s) ENT Ears, Nose, Mouth, and Throat: Reports system reviewed and no additional complaints, except as documented, Reports sinus pain and Reports sinus pressure Cardiovascular Cardiovascular: Reports system reviewed and no additional complaints, except as documented and Reports as per HPI Respiratory Respiratory: Reports system reviewed and no additional complaints, except as documented and Reports as per HPI Gastrointestinal Gastrointestingal: Reports system reviewed and no additional complaints, except as documented and as per HPI; Denies abdominal pain Genitourinary Female Genitourinary: Reports system reviewed and no additional complaints, except as documented and Reports as per HPI Physical Exam General General appearance: alert and in no apparent distress ENT ENT exam: Present mucous membranes moist Expanded ENT Exam Nose exam: Present sinus tenderness Throat exam: Present other (PND noted) Respiratory Respiratory exam: Present normal lung sounds bilaterally; Absent respiratory distress or wheezes Cardiovascular Cardiovascular exam: Present regular rate, normal rhythm and normal heart sounds Abdominal Exam Abdominal exam: Present soft and normal bowel sounds; Absent distention or tenderness Neurological Exam Neurological exam: Present alert, oriented X3 and normal gait Medical Decision Making Medical Records Screening: Per USPSTF and CDC recommendations, given the prevalence of disease in our region, it is our hospital?s policy to screen for HIV and viral Hepatitis for all patients aged 18 and over and those with ongoing risk factors. Rock Inquiry Pt receiving controlled substance: No Rock was queried for this patient: No Vital Signs: 08/11/24 11:54 Temperature 97.8 F Temperature Source Oral Pulse Rate [Left Radial] 80 Respiratory Rate 18 Blood Pressure [Left Arm] 134/87 Blood Pressure Mean [Left Arm] 102 02 Sat by Pulse Oximetry 100
[2024-08-11 12:58] VITALS: BP 134/87; PULSE 80; RESP 18; TEMP 36.6
== END 2024-08-11 12:59 | disposition home or self-care (01) ==
PROVIDERS: Emergency Provider Nurse Practitioner; PCP Internal Medicine Adolescent Medicine
DX: J01.90 Acute sinusitis, unspecified (principal)
CPT/HCPCS: 99213; G0381

== ENCOUNTER 2025-04-23 10:15 | Outpatient (CLI) | payer OTHER, SELFPAY ==
--- OUTSIDE RECORDS SUMMARY | 2025-04-23 10:17 | XMS_ITS | Clinical Summary ---
Author Organization [facility] ystem Address [address] [place] [address] Care Team Providers Care Welcome Wagon Hostess Name Role Phone Unavailable Primary Care Provider Unavailabl e Social History Tobacco Use Types Packs/Day Years Used Date Smoking Tobacco: Never Assessed Abuse Screen Answer Date Recorded Unsafe at Home or Work/School Not on file Feels Threatened by Someone? Not on file 06/2023 Does Anyone Keep You from Co ntacting Others or Doint Things Outside the Home? Not on file 07/03/2023 Physical Sign of Abuse Present Not on file 1 Housing Stability Answer Date Recorded Current Living Arrangements Not on file 06/24 Potentially Unsafe Housing Conditions Not on elijah e 07/03/2023 Family and Community Support Answer Frantz e Recorded Help with Day-to-Day Activities Not on file 07/03/2023 Lonely or Isolated Not on file 07/03/2023 Employment Answer Date Recorded Do you want help finding or keeping work or a ben b? Not on file 07/03/2023 Disabilities Answer Date Recorded Concentrating, Remembering, or Making Decisions Difficulty Not on file 07/03/2023 Doing Errands Independently Difficulty Not on fi le 07/03/2023 Education Answer Date Recorded Help with school or training? Not on file Preferred Language Not on file 07/03/2023 Comments Unknown Sex and Gender Information Value Date Recorded Sex Assigned at Not on file Legal Sex Female 1:42 PM EDT Gender Identity Not on file Sexual Orientation Not on file Plan of Treatment Health Maintenance Due Date Last Done Comments ANNUAL PHYSICAL 1994 Annual Gynecologic Pelvic an d Breast Exam 1994 HEPATITIS C SCREENING 1994 TDAP/TD VACCINES (1 - Tdap) 2013 COVID-19 Vaccine (2023-2 5 season) 2024 INFLUENZA VACCINE 06/24/2025 Pneumococcal Vaccine 0-49 Aged Out No longer eligible based on patient's age to complete this topic
[2025-04-23 11:48] LABS: Hepatitis C Ab Qual. W/ RFX NEGATIVE (Negative)
[2025-04-24 05:11] LABS: Hepatitis B Surface Antigen Negative (Negative)
[2025-04-27 13:10] LABS: HSV-1 DNA Negative (Negative); HSV-2 DNA Negative (Negative)
== END 2025-04-23 23:59 | disposition home or self-care (01) ==
LOC: LAB 10:15
PROVIDERS: PCP Internal Medicine Adolescent Medicine; Visit Provider Obstetrics & Gynecology
DX: Z13.89 Encounter for screening for other disorder (principal); Z20.2 Contact with and (suspected) exposure to infections with a predominantly sexual mode of transmission
CPT/HCPCS: 36415; 86803; 87340; 87389; 87529

== ENCOUNTER 2025-06-18 11:38 | Emergency (ER) | payer OTHER, SELFPAY ==
[2025-06-18 11:47] VITALS: BP 174/96; PULSE 74; RESP 18; O2SAT 100; BMI 29.9
[2025-06-18 12:02] LABS: Microscopic, Urine URINE MICROSCOPIC (MICROSCOPIC)
[2025-06-18 12:07] LABS: Bilirubin,Urine Negative (Negative); Color,Urine YELLOW (Yellow); Glucose,Urine (UA) Negative (Negative); Ketones,Urine Negative (Negative); Leukocyte Esterase,Urine 1+ (Negative); PH,Urine 6.0 (5.0-8.5); Protein,Urine Negative (Negative); Specific Gravity, Urine <= 1.005 (1.005-1.030); Urobilinogen,Urine 0.2 EU/dl (0.2)
--- NOTE | 2025-06-18 12:24 | US_ITS ---
PROCEDURE INFORMATION: Exam: US , Transvaginal Exam date and time: 06/18/2025 12:36 PM Age: 30 years old Clinical indication: Lmp or gestational age (in weeks): 4w3d; Other: Spotting; ; Additional info: Bleeding TECHNIQUE: Imaging protocol: Real-time transvaginal obstetrical ultrasound of the maternal pelvis with image documentation. Transvaginal imaging was used for better evaluation of the fetus, adnexa, and/or cervix. COMPARISON: US OB BIOPHYSICAL PROFILE 06/08/2021 1:35 PM FINDINGS: Gestation: No intrauterine is identified. MATERNAL: Uterus: Uterus is retroflexed. No myometrial mass identified on submitted images. Endometrium appears somewhat heterogeneous and measures up to 14 mm in greatest thickness. No focal mass or increased vascularity within the endometrium. 4 mm subendometrial echogenic focus is noted within the posterior mid aspect of the uterus. This is somewhat nonspecific and could correspond to subendometrial calcification. Right ovary/adnexa: Right ovary measures 3.0 x 2.2 x 1.8 cm. Possible collapsing follicle within the central aspect. Color-flow is documented within the right ovary. No adnexal mass. Left ovary/adnexa: Left ovary measures 2.1 x 2.8 x 1.8 cm. Color flow is documented within the left ovary. No adnexal mass. Intraperitoneal space: [id number] amount of free fluid is present within the cul-de-sac. IMPRESSION: 1. No intrauterine identified. [id number] amount of free fluid is present within the cul-de-sac. Correlation with beta-hCG levels is recommended. 2. If transvaginal ultrasonography does not detect intrauterine , possibility of ectopic is 70 times higher when serum beta subunit of human chorionic gonadotropin level is 3,000 IU per mL or greater. Although no evidence of viable intrauterine or ectopic on this sonogram recommend clinical correlation and follow-up for of unknown location.
--- OUTSIDE RECORDS SUMMARY | 2025-06-18 12:24 | XMS_ITS | Clinical Summary ---
Author Organization [facility]stem Address [address] [place] [address] Care Team Providers Care Covered Button Maker Name Role Phone Unavailable Primary Care Provider [...] 1994 TDAP/TD VACCINES (1 - Tdap) 2013 INFLUENZA VACCINE 04/24/2025 Pneumococcal Vaccine 0-49 Aged Out No longer eligible based on patient's age to complete this topic
--- NOTE | 2025-06-18 12:27 | ED_ITS ---
<Statement entered by Jarrod Britton MD - 06/18/25 15:44> I was consulted by the ANALI, and we discussed the complexity of the problems being addressed. I approved the treatment and management plan for this patient's care in the emergency department, thus performing a substantive portion of the medical decision making. Jarrod Britton MD Discharge Plan Disposition Patient Disposition: Home, Self-Care Prescriptions Prescriptions: No Action famotidine 20 mg tablet 20 mg PO HS Referrals Follow up/Referrals: Roney Posada MD [Staff Physician, DANCE CRITIC] - See instructions Oren Jones MD [Primary Care Provider, Internal Medicine] - See instructions Activity Restrictions/Add. Instructions Additional Instructions/Restrictions: Please make follow-up appointment for tomorrow, Sunday to repeat hCG and ultrasound if Dr. Coates feels that is necessary. This is important because we have not identified a inside your uterus. We need to make sure that we repeat this hCG test to determine if the number is trending up or down. If you have any worsening pain or bleeding please return to the ER immediately. Clinical Impressions Clinical Impression: Vaginal bleeding affecting early , Miscarriage, threatened, early Instructions Patient Instructions: Threatened Miscarriage, Early Bleeding Print Language Print Language: Occitan Discharge ED Provider: Jarrod Britton General Adult HPI General Chief complaint: OB/Uterine Contractions Stated complaint: Took Preg. Test 3 days ago & now bleeding Time Seen by Provider: 06/18/25 11:57 Mode of Arrival: Ambulatory Source of Information: Patient Description of Symptoms (Recalled from ER Triage Doc. by RN): Reports taking a test approx 3 days ago and it was positive. States that she went to [place] this am and when she got home she noticed some blood when she wiped. History of Present Illness HPI narrative: 30-year-old female presents to the ED today for complaint of vaginal bleeding when she wipes. She says this is bright red blood. She says that she also has some mild cramping and some low back pain. She says her last menstrual period was May 18. She took a test 3 days ago that was positive. She does have 2 children that she had normal pregnancies and normal deliveries with. She denies fevers, chills, nausea or vomiting. No recent illness. No other symptoms at this time Related Data Home Medications ?Medication ?Instructions ?Recorded ?Confirmed famotidine 20 mg tablet 20 mg PO HS 04/23/25 5 Allergies Allergy/AdvReac Type Severity Reaction Status Date / Time No Known Allergies Allergy Verified 06/10/25 14:25 [facility] Disclaimer: The information contained in this section may have been updated after the patient was seen, as this information can be updated by other users. Medical History (Updated 06/18/25 @ 14:14 by Jada Vizcarra (ED), [employer]) Rash and nonspecific skin eruption Urinary tract infection History of gastroesophageal reflux (GERD) Bicuspid aortic valve HTN (hypertension) Surgical History History of tonsillectomy History of cholecystectomy Family History Other Asthma Heart attack Hypertension Substance abuse Social History Smoking Status: Current every day smoker tobacco type: e-cigarettes second hand exposure: Yes alcohol intake: never substance use type: denies use current occupational status: employed Travel in the last 8 weeks?: None housing: apartment 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 current occupational exposures/hazards: No caffeine: Yes Have you lived/traveled outside US in past 30 days?: No Contact w/someone who lives/traveled outside US past 30 days?: No Exposure to someone with infectious disease in past 14 days?: No Do you have a fever (greater than 100.4 F or 38 C)?: No Have you tested positive for COVID-19?: No Exposed to someone with COVID-19 in past 14 days?: No Do you have a sore throat?: No Do you have a cough?: No Do you have any weakness?: No Do you have any diarrhea?: No Are you experiencing any unusual bleeding?: No Do you have any muscle aches/pain?: No Do you have any abdominal pain?: No Are you experiencing loss of taste or smell?: No Other Medical History Have you received the Flu Vaccine for this season: No Have you received the Pneumonia Vaccine: No ROS Obtained: Yes Systems reviewed as appropriate & no additional complaints except as documented Constitutional Constitutional: Reports as per HPI Physical Exam General General appearance: alert and in no apparent distress Head Head exam: normocephalic Eye Eye exam: Present PERRL and EOMI ENT ENT exam: Present normal oropharynx and mucous membranes moist Neck Neck exam: Present full ROM and trachea midline Respiratory Respiratory exam: Present normal lung sounds bilaterally Cardiovascular Cardiovascular exam: Present regular rate, normal rhythm, normal heart sounds, +S1 and +S2 Abdominal Exam Abdominal exam: Present soft and normal bowel sounds Extremities Exam Extremities exam: Present normal inspection, full ROM and normal capillary refill Neurological Exam Neurological exam: Present alert, oriented X3 and normal gait Skin Skin exam: Present warm, dry and intact Medical Decision Making Medical Records Screening: Per USPSTF and CDC recommendations, given the prevalence of disease in our region, it is our hospital?s policy to screen for HIV and viral Hepatitis for all patients aged 18 and over and those with ongoing risk factors. Rock Inquiry Pt receiving controlled substance: No Rock was queried for this patient: No Vital Signs: 06/18/25 11:47 Pulse Rate [Radial] 74 Respiratory Rate 18 Blood Pressure [Right Arm] 174/96 H Blood Pressure Mean [Right Arm] 122 Blood Pressure Source [Right Arm] Automatic Cuff Blood Pressure Position [Right Arm] Sitting 02 Sat by Pulse Oximetry 100 Oxygen Delivery Method Room Air Lab Data Lab Results 06/18/25 11:58: Urine Color Yellow, Urine Appearance Clear, Urine pH 6.0, Ur Specific [place] <= 1.005, Urine Protein Negative, Urine Glucose (UA) Negative, Urine Ketones Negative, Urine Blood 3+ A, Urine Nitrate Negative, Urine Bilirubin Negative, Urine Urobilinogen 0.2, Ur Leukocyte Esterase 1+ A, Urine RBC 10-20, Urine WBC 3-5, Ur Squamous Epith Cells 3-5, Urine Bacteria Trace 06/18/25 12:41: WBC 8.0, RBC 4.39, Hgb 13.5, Hct 39.4, MCV 89.7, MCH 30.8, MCHC 34.3, RDW 12.6, Plt Count 309, MPV 11.0 H, Neut % (Auto) 64.1, Lymph % (Auto) 26.6, [place] % (Auto) 7.6, Eos % (Auto) 0.8, Baso % (Auto) 0.5, Neut # (Auto) 5.1, Lymph # (Auto) 2.1, [place] # (Auto) 0.6, Eos # (Auto) 0.1, Baso # (Auto) 0.0, PT 11.7, INR 1.06, APTT 27.3, Sodium 139, Potassium 3.6, Chloride 103, Carbon Dioxide 27, Anion Gap 12.6, BUN 8, Creatinine 0.70, Estimated Creat Clear 169, Estimated GFR 98, Est GFR ( Amer) 118, Glucose 92, Calcium 9.7, Magnesium 2.0, Total Bilirubin 1.4 H, AST 29, ALT 21, Alkaline Phosphatase 92, Total Protein 8.2, Albumin 4.6, Globulin 3.6 H, Albumin/Globulin Ratio 1.3, Lipase 55, HCG, Quant 21 H, Blood Type O Positive 06/18/25 12:41 06/18/25 12:41 Orders (Tests/Meds): ED MEDICATIONS Discontinued Medications Generic Name Dose Route Start Last Admin Trade Name Freq PRN Reason Stop Dose Admin Sodium Chloride 1,000 mls @ 999 mls/hr 06/18/25 12:26 06/18/25 13:14 Sod Chlor 0.9% 1000ml Bag IV 06/18/25 13:26 999 mls/hr .Q1H1M ONE Administration ORDERS Category Date Time Status ABO/RH Type Stat BBK 06/18/25 12:41 Completed CBC [Complete Blood Count Auto Diff] Stat Lab 06/18/25 12:41 Completed Comprehensive Metabolic Panel Stat Lab 06/18/25 12:41 Completed HCG,Quantitative Stat Lab 06/18/25 12:41 Completed Lipase Stat Lab 06/18/25 12:41 Completed Magnesium Stat Lab 06/18/25 12:41 Completed PT INR [Prothrombin Time INR] Stat Lab 06/18/25 12:41 Completed PTT [Activated Partial Thrombo Time] Stat Lab 06/18/25 12:41 Completed UA [Urinalysis and Microscopic] Stat Lab 06/18/25 11:58 Completed Urine Culture Stat Micro 06/18/25 11:58 Received US OB transvaginal Stat Ultrasound 06/18/25 12:24 Completed Medical Decision Narrative: patient is a 30-year-old female presenting to the emergency department for evaluation of vaginal bleeding, positive test. Patient is hemodynamically stable and nontoxic-appearing upon arrival, afebrile. Differential diagnosis includes normal early bleeding, early miscarriage, UTI, among other. Workup will be conducted with hematologic labs, specific imaging. Initial inventions include crystalloid bolus, analgesics. Initial workup reviewed by me hematologic labs are remarkable for hCG of 21, therefore after discussion with Dr. Britton I had a discussion with patient that she needs to have this repeated tomorrow with Dr. Coates in his office. Especially after ultrasound did not show . Ultrasound did not show intrauterine . I did discuss with patient that since it was not found in her uterus that she there is still is a possibility of an ectopic . I discussed with her that if she had any increased pain or bleeding that she is to come back to the ED immediately. She is also going to call Dr. Coates when she leaves here for an appointment tomorrow to have a repeat hCG and ultrasound if he feels necessary. Other labs were nonactionable today. Patient is stable for discharge home. 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 She is safe for discharge home. Critical Care Critical Care Time Critical Care Time: No
[2025-06-18 12:33] LABS: Bacteria,Urine Trace /lpf
[2025-06-18 13:01] LABS: Hematocrit 39.4 % (37.0-47.0); Hemoglobin 13.5 g/dL (12.2-16.2); Immature Granulocytes % 0.4 %; Mean Corpuscular HGB Conc 34.3 g/dL (31.8-35.4); Mean Corpuscular Hemoglobin 30.8 pg (27.0-31.2); Mean Corpuscular Volume 89.7 fl (81-99); Nucleated Red Blood Cells % 0 %; Platelet Count 309 K/mm3 (142-424); Red Blood Count 4.39 M/mm3 (4.20-5.40); Red Cell Distribution Width-SD 41.4 fL; White Blood Count 8.0 K/mm3 (4.8-10.8)
[2025-06-18 13:05] LABS: Albumin Level 4.6 g/dl (3.5-5.0); Chloride 103 mmol/L (98-107); Potassium 3.6 mmoL/L (3.5-5.1); Sodium 139 mmol/L (136-145)
[2025-06-18 13:07] LABS: Alanine Aminotransferase 21 U/L (12-78); Aspartate Amino Transferase 29 U/L (14-36); Blood Urea Nitrogen 8 mg/dl (7-17); Creatinine Clearance Estimated 169 mL/min (50-200); Creatinine,Serum 0.70 mg/dl (0.52-1.04); Estimated Glomerular Filt Rate 98 ml/min (>60); GFR (African American) 118 ML/MIN (>60)
[2025-06-18 13:08] LABS: Albumin/Globulin Ratio 1.3 (1.1-1.8); Alkaline Phosphatase 92 U/L (38-126); Anion Gap 12.6 mEq/L (5-15); Bilirubin,Total 1.4 mg/dl (0.2-1.3); Calcium 9.7 mg/dl (8.4-10.2); Carbon Dioxide 27 mmol/L (22.0-30.0); Globulin 3.6 g/dL (1.3-3.2); Glucose 92 mg/dl (74-100); Lipase 55 U/L (23-300); Magnesium 2.0 mg/dl (1.6-2.3); Total Protein,Serum 8.2 g/dl (6.3-8.2)
[2025-06-18 13:11] LABS: Activated Partial Thrombo Time 27.3 seconds (22.8-30.6); INR 1.06 (0.9-1.1); Prothrombin Time 11.7 seconds (10.1-12.5)
[2025-06-18] MEDS: 0.9 % SODIUM CHLORIDE 1000ML 1,000 ML 999 ML IV (13:14)
[2025-06-18 14:21] VITALS: BP 136/83; PULSE 82; RESP 16; TEMP 36.7; O2SAT 98
== END 2025-06-18 14:22 | disposition home or self-care (01) ==
PROVIDERS: Nurse Practitioner; Emergency Provider Emergency Medicine; PCP Internal Medicine Adolescent Medicine
DX: O20.0 Threatened abortion (principal); Z3A.01 Less than 8 weeks gestation of pregnancy
CPT/HCPCS: 76817; 80053; 81001; 83690; 83735; 84702; 85025; 85610; 85730; 86900; 86901; 87086; 96360; 99284; J7030

== ENCOUNTER 2025-06-20 07:58 | Outpatient (CLI) | payer OTHER, SELFPAY ==
--- OUTSIDE RECORDS SUMMARY | 2025-06-20 08:01 | XMS_ITS | Clinical Summary ---
Author Organization [facility]stem Address [address] [place] [address] Care Team Providers Care Prison Guard Supervisor Name Role Phone Unavailable Primary Care Provider [...]
== END 2025-06-20 23:59 | disposition home or self-care (01) ==
LOC: LAB 08:00
PROVIDERS: PCP Nurse Practitioner Family; Visit Provider Nurse Practitioner Obstetrics & Gynecology
DX: Z01.419 Encounter for gynecological examination (general) (routine) without abnormal findings (principal); O20.9 Hemorrhage in early pregnancy, unspecified
CPT/HCPCS: 36415; 84144; 84702